=== PATIENT | male | born 1950 | race Caucasian/White ===

== ENCOUNTER 2020-08-03 11:34 | Outpatient (REF) | payer MEDICARE, SELFPAY ==
[2020-08-03 13:40] LABS: Cholesterol 157 mg/dL; HDL Cholesterol 45 mg/dL; LDL Cholesterol Calculated 94 mg/dl; Triglycerides 93 mg/dL
[2020-08-03 15:13] LABS: Estimated Average Glucose 169 mg/dL; Hemoglobin A1c % 7.5 %
[2020-08-04 04:56] LABS: SARS COV2 IgG Negative (Negative)
== END 2020-08-03 11:35 | disposition home or self-care (01) ==
LOC: HO.MANLR 11:34
PROVIDERS: PCP Internal Medicine; Visit Provider Internal Medicine
DX: E11.9 Type 2 diabetes mellitus without complications (principal); E78.00 Pure hypercholesterolemia, unspecified; B34.9 Viral infection, unspecified; Z20.828 Contact with and (suspected) exposure to other viral communicable diseases
CPT/HCPCS: 36415; 80061; 83036; 86769

== ENCOUNTER 2021-01-15 11:22 | Outpatient (REF) | payer MEDICARE, SELFPAY ==
[2021-01-15 13:33] LABS: Estimated Average Glucose 183 mg/dL
[2021-01-15 13:35] LABS: Alanine Aminotransferase 18 U/L (0-40); Alkaline Phosphatase 67 U/L (39-117); Anion Gap 13 (12-20); Aspartate Amino Transferase 16 U/L (5-37); Bilirubin Total 0.4 mg/dL (0.0-1.0); Blood Urea Nitrogen 21 mg/dL (9-16); Calcium 8.5 mg/dL (8.4-10.2); Carbon Dioxide 24 mmol/L (22-29); Chloride 106 mmol/L (96-108); Cholesterol 130 mg/dL; Estimated Glomerular Filt Rate > 60; Glucose Fasting 185 mg/dL (60-99); HDL Cholesterol 45 mg/dL; LDL Cholesterol Calculated 71 mg/dl; Potassium 4.5 mmol/L (3.3-5.1); Sodium 138 mmol/L (135-145); Total Protein 6.1 g/dL (6.5-8.0); Triglycerides 73 mg/dL
== END 2021-01-15 11:23 | disposition home or self-care (01) ==
LOC: HO.MANLR 11:22
PROVIDERS: PCP Internal Medicine; Visit Provider Internal Medicine
DX: E11.9 Type 2 diabetes mellitus without complications (principal)
CPT/HCPCS: 36415; 80053; 80061; 83036

== ENCOUNTER 2021-04-20 11:14 | Outpatient (REF) | payer MEDICARE, SELFPAY ==
[2021-04-20 13:35] LABS: Estimated Average Glucose 160 mg/dL; Hemoglobin A1c % 7.2 %
== END 2021-04-20 11:15 | disposition home or self-care (01) ==
LOC: HO.MANLDS 11:14
PROVIDERS: PCP Internal Medicine; Visit Provider Internal Medicine
DX: E11.9 Type 2 diabetes mellitus without complications (principal)
CPT/HCPCS: 36415; 83036

== ENCOUNTER 2021-08-18 11:53 | Outpatient (REF) | payer MEDICARE, SELFPAY ==
[2021-08-18 13:18] LABS: Estimated Average Glucose 194 mg/dL; Hemoglobin A1c % 8.4 %
== END 2021-08-18 11:54 | disposition home or self-care (01) ==
LOC: HO.MANLDS 11:53
PROVIDERS: PCP Internal Medicine; Visit Provider Internal Medicine
DX: E11.9 Type 2 diabetes mellitus without complications (principal)
CPT/HCPCS: 36415; 83036

== ENCOUNTER 2022-01-18 10:21 | Outpatient (REF) | payer MEDICARE, SELFPAY ==
[2022-01-18 13:48] LABS: Alanine Aminotransferase 20 U/L (0-40); Albumin Level 4.3 g/dL (3.5-5.0); Alkaline Phosphatase 70 U/L (39-117); Anion Gap 14 (12-20); Aspartate Amino Transferase 13 U/L (5-37); Bilirubin Total 0.6 mg/dL (0.0-1.0); Blood Urea Nitrogen 25 mg/dL (9-16); Calcium 9.5 mg/dL (8.4-10.2); Carbon Dioxide 24 mmol/L (22-29); Chloride 105 mmol/L (96-108); Cholesterol 147 mg/dL; Estimated Glomerular Filt Rate 57; Glucose Fasting 195 mg/dL (60-99); HDL Cholesterol 41 mg/dL; LDL Cholesterol Calculated 86 mg/dl; Sodium 138 mmol/L (135-145); Total Protein 6.6 g/dL (6.5-8.0); Triglycerides 102 mg/dL
[2022-01-18 13:56] LABS: Estimated Average Glucose 194 mg/dL; Hemoglobin A1c % 8.4 %
[2022-01-18 14:27] LABS: Creatinine Urine 97.21 mg/dL
== END 2022-01-18 10:22 | disposition home or self-care (01) ==
LOC: HO.MANLDS 10:21
PROVIDERS: PCP Internal Medicine; Visit Provider Internal Medicine
DX: E11.9 Type 2 diabetes mellitus without complications (principal)
CPT/HCPCS: 36415; 80053; 80061; 82043; 83036

== ENCOUNTER 2022-04-25 15:24 | Outpatient (REF) | payer MEDICARE, SELFPAY ==
[2022-04-25 19:24] LABS: Creatinine Urine 213.14 mg/dL; Microalbum/Creatinine Ratio Ur 14.5 ug/mg cr
[2022-04-25 19:26] LABS: Alanine Aminotransferase 19 U/L (0-40); Albumin Level 4.5 g/dL (3.5-5.0); Alkaline Phosphatase 89 U/L (39-117); Anion Gap 16 (12-20); Aspartate Amino Transferase 14 U/L (5-37); Bilirubin Total 0.6 mg/dL (0.0-1.0); Blood Urea Nitrogen 21 mg/dL (9-16); Calcium 9.5 mg/dL (8.4-10.2); Carbon Dioxide 22 mmol/L (22-29); Chloride 105 mmol/L (96-108); Cholesterol 121 mg/dL; Estimated Glomerular Filt Rate 51; Glucose Random 144 mg/dL (60-115); HDL Cholesterol 38 mg/dL; LDL Cholesterol Calculated 63 mg/dl; Potassium 4.8 mmol/L (3.3-5.1); Sodium 138 mmol/L (135-145); Total Protein 6.9 g/dL (6.5-8.0); Triglycerides 101 mg/dL
[2022-04-25 20:17] LABS: Estimated Average Glucose 169 mg/dL; Hemoglobin A1c % 7.5 %
== END 2022-04-25 15:25 | disposition home or self-care (01) ==
LOC: HO.MANLDS 15:24
PROVIDERS: Visit Provider Internal Medicine
DX: E11.9 Type 2 diabetes mellitus without complications (principal)
CPT/HCPCS: 36415; 80053; 80061; 82043; 83036

== ENCOUNTER 2022-11-07 09:02 | Outpatient (REF) | payer MEDICARE, SELFPAY ==
[2022-11-07 11:31] LABS: Alanine Aminotransferase 16 U/L (0-40); Albumin Level 4.3 g/dL (3.5-5.0); Alkaline Phosphatase 83 U/L (39-117); Anion Gap 12 (12-20); Aspartate Amino Transferase 13 U/L (5-37); Bilirubin Total 0.4 mg/dL (0.0-1.0); Blood Urea Nitrogen 21 mg/dL (9-16); Carbon Dioxide 24 mmol/L (22-29); Chloride 105 mmol/L (96-108); Cholesterol 130 mg/dL; Estimated Average Glucose 197 mg/dL; Estimated Glomerular Filt Rate 56; Glucose Random 222 mg/dL (60-115); HDL Cholesterol 35 mg/dL; Hemoglobin A1c % 8.5 %; LDL Cholesterol Calculated 68 mg/dl; Potassium 5.3 mmol/L (3.3-5.1); Sodium 136 mmol/L (135-145); Total Protein 6.5 g/dL (6.5-8.0); Triglycerides 137 mg/dL
[2022-11-07 11:52] LABS: Creatinine Urine 130.34 mg/dL
== END 2022-11-07 09:03 | disposition home or self-care (01) ==
LOC: HO.MANLDS 09:02
PROVIDERS: Visit Provider Internal Medicine
DX: E11.9 Type 2 diabetes mellitus without complications (principal)
CPT/HCPCS: 36415; 80053; 80061; 82043; 83036

== ENCOUNTER 2023-01-31 10:00 | Outpatient (REF) | payer MEDICARE, SELFPAY ==
[2023-01-31 12:15] LABS: Estimated Average Glucose 194 mg/dL; Hemoglobin A1c % 8.4 %
== END 2023-01-31 10:01 | disposition home or self-care (01) ==
LOC: HO.MANLDS 10:00
PROVIDERS: Visit Provider Internal Medicine
DX: E11.9 Type 2 diabetes mellitus without complications (principal)
CPT/HCPCS: 36415; 83036

== ENCOUNTER 2023-05-23 09:05 | Outpatient (REF) | payer MEDICARE, SELFPAY ==
[2023-05-23 12:52] LABS: MANUAL DIFF FLAG NO
[2023-05-23 13:34] LABS: Basophils Absolute Auto 0.1 X10*3/uL (0.0-0.2); Basophils Percent Auto 0.7 % (0-2); Eosinophils Absolute Auto 0.2 X10*3/uL (0.0-0.4); Hematocrit 33.6 % (42.0-52.0); Hemoglobin 10.6 g/dl (14.0-18.0); Imm Gran Abs Auto 0.02 X10*3/uL (0.00-0.03); Imm Gran Pct Auto 0.3 % (0.0-0.4); Lymphocytes Absolute Auto 1.6 X10*3/uL (1.2-4.9); Lymphocytes Percent Auto 23.7 % (20-40); Mean Corpuscular HGB Conc 31.5 g/dl (31.0-36.0); Mean Corpuscular Hemoglobin 28.9 pg (27.0-33.0); Mean Corpuscular Volume 91.6 fL (80.0-98.0); Mean Platelet Volume 10.8 fL (9.4-12.4); Monocytes Absolute Auto 0.6 X10*3/uL (0.1-1.2); Monocytes Percent Auto 8.2 % (2-11); Neutrophils Absolute Auto 4.3 x10*3/uL (2.0-8.3); Neutrophils Percent Auto 64.1 % (45-73); Platelet Count 246 X10*3/uL (160-400); Red Blood Count 3.67 X10*6/uL (4.60-5.80); Red Cell Distribution Width 13.2 % (11.0-16.0); White Blood Count 6.7 X10*3/uL (4.8-10.8)
[2023-05-23 13:42] LABS: Estimated Average Glucose 186 mg/dL; Hemoglobin A1c % 8.1 %
[2023-05-23 14:21] LABS: Alanine Aminotransferase 19 U/L (0-40); Albumin Level 4.1 g/dL (3.5-5.0); Alkaline Phosphatase 86 U/L (39-117); Anion Gap 7 (12-20); Aspartate Amino Transferase 13 U/L (5-37); Bilirubin Total 0.3 mg/dL (0.0-1.0); Blood Urea Nitrogen 22 mg/dL (9-16); Calcium 9.1 mg/dL (8.4-10.2); Carbon Dioxide 28 mmol/L (22-29); Chloride 110 mmol/L (96-108); Cholesterol 157 mg/dL; Estimated Glomerular Filt Rate 57; Glucose Random 190 mg/dL (60-115); HDL Cholesterol 47 mg/dL; LDL Cholesterol Calculated 76 mg/dl; Potassium 5.1 mmol/L (3.3-5.1); Sodium 140 mmol/L (135-145); Total Protein 6.6 g/dL (6.5-8.0); Triglycerides 171 mg/dL
== END 2023-05-23 09:06 | disposition home or self-care (01) ==
LOC: HO.MANLDS 09:05
PROVIDERS: Visit Provider Physician Assistant
DX: E78.01 Familial hypercholesterolemia (principal); E11.9 Type 2 diabetes mellitus without complications
CPT/HCPCS: 36415; 80053; 80061; 83036; 85025

== ENCOUNTER 2023-08-29 09:54 | Outpatient (REF) | payer MEDICARE, SELFPAY ==
[2023-08-29 13:55] LABS: Estimated Average Glucose 183 mg/dL
[2023-08-29 15:14] LABS: Alanine Aminotransferase 17 U/L (0-40); Albumin Level 4.1 g/dL (3.5-5.0); Alkaline Phosphatase 78 U/L (39-117); Anion Gap 15 (12-20); Aspartate Amino Transferase 13 U/L (5-37); Bilirubin Total 0.4 mg/dL (0.0-1.0); Blood Urea Nitrogen 27 mg/dL (9-16); Calcium 9.4 mg/dL (8.4-10.2); Carbon Dioxide 23 mmol/L (22-29); Chloride 107 mmol/L (96-108); Cholesterol 153 mg/dL (<200); Estimated Glomerular Filt Rate 52; Glucose Random 83 mg/dL (60-115); HDL Cholesterol 42 mg/dL (>40); LDL Cholesterol Calculated 90 mg/dL (<100); Potassium 4.7 mmol/L (3.3-5.1); Sodium 140 mmol/L (135-145); Total Protein 6.9 g/dL (6.5-8.0); Triglycerides 109 mg/dL (<150)
== END 2023-08-29 09:55 | disposition home or self-care (01) ==
LOC: HO.MANLDS 09:54
PROVIDERS: Visit Provider Internal Medicine
DX: E11.9 Type 2 diabetes mellitus without complications (principal)
CPT/HCPCS: 36415; 80053; 80061; 83036

== ENCOUNTER 2024-01-01 09:34 | Outpatient (REF) | payer MEDICARE, SELFPAY ==
[2024-01-01 14:05] LABS: Estimated Average Glucose 180 mg/dL; Hemoglobin A1c % 7.9 % (<6.0)
[2024-01-01 14:19] LABS: Alanine Aminotransferase 17 U/L (0-40); Albumin Level 4.1 g/dL (3.5-5.0); Alkaline Phosphatase 80 U/L (39-117); Anion Gap 12 (12-20); Aspartate Amino Transferase 12 U/L (5-37); Bilirubin Total 0.4 mg/dL (0.0-1.0); Blood Urea Nitrogen 23 mg/dL (9-16); Calcium 9.3 mg/dL (8.4-10.2); Carbon Dioxide 26 mmol/L (22-29); Chloride 107 mmol/L (96-108); Cholesterol 140 mg/dL (<200); Estimated Glomerular Filt Rate 56; Glucose Random 203 mg/dL (60-115); HDL Cholesterol 45 mg/dL (>40); LDL Cholesterol Calculated 71 mg/dL (<100); Potassium 5.5 mmol/L (3.3-5.1); Sodium 139 mmol/L (135-145); Total Protein 6.6 g/dL (6.5-8.0); Triglycerides 122 mg/dL (<150)
== END 2024-01-01 09:35 | disposition home or self-care (01) ==
LOC: HO.MANLDS 09:34
PROVIDERS: Visit Provider Internal Medicine
DX: E11.9 Type 2 diabetes mellitus without complications (principal)
CPT/HCPCS: 36415; 80053; 80061; 83036

== ENCOUNTER 2024-05-14 08:40 | Outpatient (REF) | payer MEDICARE, SELFPAY ==
[2024-05-14 13:32] LABS: Estimated Average Glucose 209 mg/dL; Hemoglobin A1c % 8.9 % (<6.0)
== END 2024-05-14 08:41 | disposition home or self-care (01) ==
LOC: HO.MANLDS 08:40
PROVIDERS: Visit Provider Internal Medicine
DX: E11.9 Type 2 diabetes mellitus without complications (principal)
CPT/HCPCS: 36415; 83036

== ENCOUNTER 2024-12-31 15:13 | Outpatient (REF) | payer MEDICARE, OTHER, SELFPAY ==
--- OUTSIDE RECORDS SUMMARY | 2024-12-31 19:15 | XMS_ITS | Continuity of Care Document ---
Author Organization [facility], [facility] Address [address] [facility] [facility] [place] [address] [place] [address] Assessment No assessment recorded. Plan of Treatment Reminders Order Date Submit Date Provider Last Modified By Organization Details Last Modified Time Details Appointments NEW PROBLEM 15 2024 02:30P M CAROLE ARREGUIN Not available Not available Not available FOLLOW UP 15 2024 10:30A M DR CHAVEZ Not available Not available Not available Lab CMP, serum or plasma 2024 [facility], [address] [place] [address], [place], [address], 12/31/2024 15:08:27 pro BNP (pro B-type natriur etic peptide ), serum or plasma 2024 025 [facility], [address] [place] [address], [address], 12/31/2024 15:08:27 CBC w/ auto diff 2024 025 [facility], [address] [place] [address], [address], 12/31/2024 15:08:27 Referral cardiol ogist referra l 2024 025 [facility], [address], [place], [address], 12/31/2024 16:46:35 Procedures None recorde d. Surgeries None recorde d. Imaging US, echocar diogram [email or web address] [place] [address] Outpatient Imaging Central Scheduling (Not Breast), [address] [place], [address], 12/31/2024 16:17:48 exercis e stress test [address] Outpatient Imaging Central Scheduling (Not Breast), [address] [place], [address], 12/31/2024 16:17:48 electro cardiog seema, routine ECG, 12 leads min [address] Imaging Central Scheduling (Not Breast), [address] [place], [address], 12/31/2024 16:17:48 Medication Orders clindam ycin HCl 300 mg capsule 2024 [id number] [address] [place] [address], [address], 12/31/2024 15:00:31 nitrogl ycerin 0.4 mg subling ual tablet 2024 025 [facility][id number], [address] [place] [address], [address], 12/31/2024 15:02:23 hydroch lorothi azide 12.5 mg capsule 2024 025 [id number], [address] [place] [address], [address], 12/31/2024 15:03:19 Patient TargetsNo targets recorded. Patient InstructionsNo instructions recorded. 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 [employer] Referral for At ypical chest pain hx of NSTEMI, needs new cardiology Referring Physician: Charis Bhakta, Internal Medicine, Encounter Date: 12/31/2024 Problems Name Problem SNOMED Code Status Onset Date Resolution Date Notes Provider Name and Address Organization Details Recorded Time Type 2 diabetes mellitus 68163605 Active 2017 Anabella cano [facility] 4 10:31:03 Essential hypertens ion 43034011 Active 2017 Anabella cano [facility] 4 10:31:03 Hyperchol esterolem ia 26968141 Active 2017 Anabellapasha cano [facility] 4 10:31:03 Closed fracture of right wrist 357945467988 15340 Active 2017 Anabella cano [facility] 4 10:31:24 Congenita l inguinal hernia 533643677 [facility] 10:[facility] History of appendect maria luz 737617656 Active 2017 Anabella cano [facility] 4 10:31:03 Paroxysma l supravent ricular tachycard ia 84089447 Active 2017 Anabella cano [facility] 4 10:31:03 Acute non-ST segment elevation myocardia l infarctio n 059009170 Active 02/2017 Anabella cano [facility] 4 10:31:03 Family history of stroke 983545939 [facility] 2017 [facility] 4 10:31:03 Coronary atheroscl erosis 347580747 Active 2017 Not Available [facility] 4 09:43:34 Insomnia 914618345 Active 2021 Anabella cano [facility] 4 10:31:03 Pain in left lower limb 114939693 Active 2021 Anabella cano [facility] 4 10:31:23 Cough 33357855 Active 2021 Anabellapasha cano [facility] 4 10:31:24 Impacted cerumen 27083565 Active 2021 Anabella cano [facility] 4 10:31:23 Impacted cerumen of bilateral ears 602236006068 9108 Active 2021 Anabellapasha Colmenares null, [facility] 4 10:31:23 Impacted cerumen 79003543 Active 2021 Anabellapasha Colmenares null, [facility] 4 10:31:23 Hyperkale jena 09894129 Active 2022 Anabellapasha Colmenares null, [facility] 4 10:31:03 Strain of hamstring tendon 315127684 Active 2022 Anabellapasha Colmenares null, [facility] 4 10:31:23 Pain of right knee joint 429076559270 100 Active 2022 Anabellapasha Colmenares null, [facility] 4 10:31:24 Chronic insomnia 505572211 Active 2022 Anabella Colmenares null, [facility] 4 10:31:03 Derangeme nt of right knee 628526905072 28153 Active 2022 Anabella Colmenares null, [facility] 4 10:31:03 Diverticu litis of sigmoid colon 133762139 Active 2022 Anabella Colmenares null, [facility] 4 10:31:03 Tear of meniscus of knee 379908173 Active 2022 Anabella Colmenares null, [facility] 4 10:31:23 Pain in right hip joint 259321965043 102 Active 2022 Anabella Colmenares null, [facility] 4 10:31:23 Pain in right lower limb 419095246 Active 2022 Anabellapasha Colmenares null, [facility] 4 10:31:23 Gastroeso phageal reflux disease 868380684 Active 2023 Hugh Chavez, DO [address] [place] [address], [place], [address], [facility] 4 15:40:00 Infection of tooth 483796375 Active 2024 CAROLE ARREGUIN [address] [place] [address], [phone], [facility] 5 14:49:11 Atypical chest pain 089893224 Active 2024 CAROLE ARREGUIN [address] [place] [address], [phone], [facility] 5 14:52:12 Notes:Some problems listed i n Documents: #[id number], #[id number], #[id number] could not be added to this patient's chart. Please review these documents and add these problems to the patient's chart manually as needed. Problem Notes None recorded. Procedures Surgical History Date Name Laterality Status Provider Name and Address Organization Details Recorded Time 023 Corticosteroid Injection completed Hugh Chavez DO [address] [place] [address], [phone], [facility] 09/12/2023 13:43:12 023 Corticosteroid Injection completed Hugh Chavez DO [address] [place] [address], [phone], [facility] 07/11/2023 15:46:05 023 Cerumen Removal completed CAROLE ARREGUIN [address] [place] [address], [phone], [facility] 01/31/2023 09:53:04 022 Cerumen Removal completed CAROLE ARREGUIN [address] [place] [address], [phone], [facility] 08/02/2022 10:58:32 022 Cerumen Removal completed CAROLE ARREGUIN [address] [place] [address], [address], [facility] 07/19/2022 10:37:40 022 Cerumen Removal completed CAROLE ARREGUIN [address] [place] [address], [phone], [facility] 07/11/2022 11:30:14 Imaging Results None recorded. Procedure Notes None recorded. Medical Equipment None Reported. Allergies Allergen ID Allergen Name Allergen Category Reaction Reaction Severity Criticality Documentation Date Start Date Code Code System Note Provider Name and Address Organization Details Recorded Time 241 penicilli n V Not available Not available Not available Not available 01/01/2018 7984 RxNorm Bettina Arnie [facility] 8 11:30:51 Medications Name Sig Start Date Stop Date Status Note LastModified by Organization Details LastModified Time pioglitazon e 15 mg tablet 08/03 completed Not Available Not Available Not Available metformin 500 mg tablet TAKE 1 TABLET BY MOUTH TWICE A DAY FOR 2 WEEKS THEN 2 TABLETS IN THE MORNING AND 1 TABLET IN EVENING FOR 2 WEEKS THEN 2 TABLETS TWICE A DAY 02/24 completed Not Available Not Available Not Available atorvastati n 80 mg tablet TAKE 1 TABLET BY MOUTH EVERY DAY 2023 active Not Available Not Available Not Avai lable prednisone 10 mg tablet Take 1 tablet every day by oral route for 10 days. 12/31 completed Not Available Not Available Not Available clindamycin HCl 300 mg capsule Take 1 capsule every 6 hours by oral route for 10 days. 2024 active Not Available Not Available Not Avai lable trazodone 50 mg tablet Take 1 tablet every day by oral route in the evening for 30 days. active Not Available Not Available No t Available azithromyci n 250 mg tablet TAKE 2 TABLETS (500 MG) BY ORAL ROUTE ONCE DAILY FOR 1 DAY THEN 1 TABLET (250 MG) BY ORAL ROUTE ONCE DAILY FOR 4 DAYS 07/11 completed Not Available Not Available Not Available tizanidine 4 mg tablet TAKE 1 TABLET BY MOUTH THREE TIMES A DAY NEEDED FOR 10 DAYS 09/02 completed Not Available Not Available Not Available metoprolol succinate ER 50 mg tablet,exte nded release 24 hr TAKE 1 TABLET BY MOUTH ONCE DAILY 06/23 completed Not Available Not Available Not Available meloxicam 15 mg tablet TAKE 1 TABLET BY MOUTH ONCE DAILY active Not Available Not Available No t Available lisinopril 20 mg tablet TAKE 1 TABLET BY MOUTH ONCE DAILY FOR 90 DAYS 06/23 completed Not Available Not Available Not Available metoprolol succinate ER 100 mg tablet,exte nded release 24 hr TAKE 2 TABLETS BY MOUTH EVERY DAY 2024 active Not Available Not Available Not Avai lable metronidazo le 250 mg tablet Take 1 tablet 3 times a day by oral route with meals for 7 days. 06/23 completed Not Available Not Available Not Available pioglitazon e 45 mg tablet Take 1 tablet by mouth once daily 05/30 completed Not Available Not Available Not Available acetaminoph en 300 mg-codeine 30 mg tablet TAKE 1 TABLET BY MOUTH EVERY 6 HOURS FOR 7 DAYS 09/02 completed Not Available Not Available Not Available ciprofloxac in 500 mg tablet TAKE 1 TABLET BY MOUTH EVERY 12 HOURS FOR 10 DAYS 01/01 completed Not Available Not Available Not Available tramadol 50 mg tablet TAKE 1 TABLET BY MOUTH EVERY 6 HOURS NEEDED FOR 30 DAYS active Not Available Not Available No t Available methocarbam ol 750 mg tablet Take 1 tablet 3 times a day by oral route for 15 days. 09/14 completed Not Available Not Available Not Available erythromyci n 5 mg/gram (0.5 %) eye ointment APPLY TO LOWER RIGHT EYELID TWICE DAILY FOR 4 DAYS 08/24 completed Not Available Not Available Not Available oseltamivir 75 mg capsule 02/24 completed Not Available Not Available Not Available hydrochloro thiazide 12.5 mg capsule Take 1 capsule every day by oral route for 30 days. 2024 active Not Available Not Available Not Avai lable nitroglycer in 0.4 mg sublingual tablet 0.3-0.6 mg SL q5min; Max: 3 doses w/in 15min 2024 active Not Available Not Available Not Avai lable lisinopril 30 mg tablet TAKE 1 TABLET BY MOUTH ONCE DAILY 09/20 completed Not Available Not Available Not Available omeprazole 20 mg capsule,del ayed release TAKE 1 CAPSULE BY MOUTH EVERY DAY active Not Available Not Available No t Available diclofenac sodium 75 mg tablet,cody yed release TAKE 1 TABLET BY MOUTH TWICE DAILY WITH MEALS FOR 10 DAYS 09/02 completed Not Available Not Available Not Available codeine 10 mg-guaifene sin 100 mg/5 mL oral liquid TAKE 10 ML BY MOUTH EVERY 4 HOURS FOR 7 DAYS 12/31 completed Not Available Not Available Not Available zolpidem 5 mg tablet TAKE 1 TABLET BY MOUTH EVERY DAY AT BEDTIME NEEDED active Not Available Not Available No t Available metoprolol succinate ER 25 mg tablet,exte nded release 24 hr 03/12 completed Not Available Not Available Not Available pioglitazon e 30 mg tablet Take 1 tablet every day by oral route for 30 days. 01/18 completed Not Available Not Available Not Available lisinopril 40 mg tablet TAKE 1 TABLET BY MOUTH EVERY DAY 2024 active Not Available Not Available Not Avai lable metformin ER 500 mg tablet,exte nded release 24 hr TAKE 2 TABLETS BY MOUTH TWICE A DAY WITH MEALS 2023 active Not Available Not Available Not Avai lable BD Ultra-Fine Mini Pen Needle 31 gauge x 3/16 USE FOUR TIMES PER DAY FOR INSULIN INJECTION S active Not Available Not Available No t Available Aspir-81 active Not Available Not Avai lable Not Available FreeStyle Lite Meter kit USE DIRECTED TO CHECK GLUCOSE DAILY 2022 active Not Available Not Available Not Avai lable FreeStyle Lite Strips USE 1 STRIP TO CHECK GLUCOSE THREE TIMES DAILY BEFORE MEAL(S) E11.65 active Not Available Not Available No t Available Lantus Solostar U-100 Insulin 100 unit/mL (3 mL) subcutaneou s pen INJECT 50 UNITS SUBCUTANE OUSLY AT BEDTIME active Not Available Not Available No t Available Humalog KwikPen (U-100) Insulin 100 unit/mL subcutaneou s INJECT 30 UNITS SUBCUTANE OUSLY DAILY EVERY 6 HOURS IF NEEDED 2023 active Not Available Not Available Not Avai lable Trulicity 1.5 mg/0.5 mL subcutaneou s pen injector INJECT 1 PEN SUBCUTANE OUSLY ONCE A WEEK 05/24 completed Not Available Not Available Not Available Fluad 2016- 65yr up(PF)45 mcg(15 mcgx3)/0.5 mL intramuscul ar syringe 09/14 completed Not Available Not Available Not Available Shingrix (PF) 50 mcg/0.5 mL intramuscul ar suspension, kit 01/29 completed Not Available Not Available Not Available Fluzone High-Dose (PF) 180 mcg/0.5 mL intramuscul ar syringe 09/14 completed Not Available Not Available Not Available BD Marianne 2nd Gen Pen Needle 32 gauge x USE 1 PEN NEEDLE TO INJECT INSULIN UP TO 4 TIMES DAILY DIRECTED active Not Available Not Available No t Available Fluad 2018- 65yr up(PF)45 mcg(15 mcgx3)/0.5 mL intramuscul ar syringe 09/20 completed Not Available Not Available Not Available Semglee (insulin glargine-yf gn) Pen 100 unit/mL (3 mL) subcutaneou s INJECT 50 UNITS SUBCUTANE OUSLY AT BEDTIME 01/01 completed Not Available Not Available Not Available Vitals Date Recorded Body height Body mass index (BMI) Body weight Heart rate Oxygen saturation Oxygen saturation in Arterial blood by Pulse oximetry Systolic blood pressure Diastolic blood pressure Provider Name and Address Organization Details Last Updated DateTime 5 170.18 cm 31 kg/m2 27168.2 9 g 69 /min 96 % 96 % 150 mm[Hg] 78 mm[Hg] Miles Estes [facility] 5 14:42:52 Social History Question Answer Notes LastModified by Organizat ion Details LastModified Time Tobacco Smoking Status Never Smoker Karlene cano [facility] 03/12/2018 17:04:43 What Was The Date Of Your Most Recent Tobacco Screening? 12/31/2024 [email or web address] Information not available 12/31/2024 Do You Or Have You Ever Used Any Other Forms Of Tobacco Or Nicotine? No [email or web address] Information not available 05/24/2023 Sex: Unknown Functional Status None recorded. Mental Status None recorded. Family History Nothing Reported. Medical History No medical history recorded. Immunizations Vaccine Type Date Status Note Provider Nam e and Address Organization Details Recorded Time pneumococcal polysaccharide PPV23 6 completed Not Available [facility] 11/16/2023 09:43:34 Influenza, split virus, quadrivalent, preservative 8 completed Not Available [facility] 11/16/2023 09:43:34 Influenza, split virus, quadrivalent, preservative 1 completed Not Available [facility] 11/16/2023 09:43:34 COVID-19, mRNA, LNP-S, PF, 30 mcg/0.3 mL dose 1 completed Not Available [facility] 11/16/2023 09:43:34 COVID-19, mRNA, LNP-S, PF, 30 mcg/0.3 mL dose 2 completed Not Available [facility] 11/16/2023 09:43:34 influenza, unspecified formulation 2 completed Not Available [facility] 11/16/2023 09:43:34 zoster live 8 completed Not Available [facility] 11/16/2023 09:43:34 zoster live 8 completed Not Available [facility] 11/16/2023 09:43:34 Influenza, split virus, quadrivalent, preservative 9 completed Not Available [facility] 11/16/2023 09:43:34 COVID-19, mRNA, LNP-S, PF, 30 mcg/0.3 mL dose 1 completed Not Available [facility] 11/16/2023 09:43:34 COVID-19, mRNA, LNP-S, PF, 30 mcg/0.3 mL dose 1 completed Not Available [facility] 11/16/2023 09:43:34 Influenza, split virus, quadrivalent, preservative 0 completed Not Available [facility] 11/16/2023 09:43:34 Past Encounters Encounter ID Performer Location Encounter Start Date Encounter Closed Date Diagnosis/Indication Diagnosis SNOMED-CT Code Diagnosis ICD10 Code Diagnosis Note [id number] CAROLE ARREGUIN [facility] [address] [facility] [address] 12/31/2024 14:02:27 12/31/2024 16:17:48 Infection of tooth 855455180 K04.7 Atypical chest pain 1025 11034 R07.89 will set up with US echo, exercise stress, EKG STAT increase the aspirin to 325 mg, add additional BP medcontinu e on metoprolol and lisinopril Health Concerns Section Related Observation LastModified by Organization Detai ls LastModified Time None Recorded Concern Status LastModified by Organization Details LastModified Time None Recorded Payers Encounter Date Sequence Insurance Name Policy Number Policy Goode Covered Member ID Goode Member ID Guarantor Name 12/31/2024 1 [place]IC[place]: [employer] Price Robertsoney [id number] Price Aly 12/31/2024 2 [employer] (MEDICARE SUPPLEMENT) Price Jermain [id number] Price Jermain Notes Date Note Type Note Provider Name a nd Address Organization Details Recorded Time 12/31/2024 text/html BP elevated patient has been having blurred visionthe patient reports headaches, blurred vision, nose bleeds intermittent L arm pain, chest pressure hx of NSTEMIneeds new cardio, STAT f/u with EKG and stress test due to concern for ACS pt knows go to ER if symptoms worsenneeds EKG STAT, if showing anything needs to go to ER 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
== END 2024-12-31 15:14 | disposition home or self-care (01) ==
LOC: HO.MANLDS 15:13
PROVIDERS: Visit Provider Physician Assistant
DX: Z13.89 Encounter for screening for other disorder (principal)

== ENCOUNTER 2025-01-06 14:02 | Outpatient (REF) | payer MEDICARE, OTHER, SELFPAY ==
--- OUTSIDE RECORDS SUMMARY | 2025-01-06 15:57 | XMS_ITS | Continuity of Care Document ---
Author Organization [facility], [facility] Address [address] [place] [address] Assessment No assessment recorded. Plan of Treatment Reminders Order Date Submit Date Provider Last Modified By Organization Details Last Modified Time Details Appointments FOLLOW UP 15 2024 10:30A M DR CHAVEZ Not available Not available Not available Lab CMP, serum or plasma 2024 025 [facility], [address] [place] [address], [id number], 12/31/2024 15:08:27 pro BNP (pro B-type natriur etic peptide ), serum or plasma 2024 025 [facility], [address] [place] [address], [place], [address], 12/31/2024 15:08:27 CBC w/ auto diff 2024 025 [facility], [address] [place] [address], [id number], 01/02/2025 13:12:56 Referral cardiol ogist referra l 2024 025 [facility], [address], [place], [address], 01/01/2025 08:21:06 Procedures None recorde d. Surgeries None recorde d. Imaging US, echocar diogram 2024 025 [facility] Central Scheduling (Not Breast), [address] [place], [address], 01/01/2025 08:09:05 exercis e stress test [address] [facility] Central Scheduling (Not Breast), [address] [place], [address], 12/31/2024 16:17:48 electro cardiog seema, routine ECG, 12 leads min [address] Outpatient [facility] Central Scheduling (Not Breast), [address] [place], [address], 12/31/2024 16:17:48 Medication Orders clindam ycin HCl 300 mg [id number] [address] [place], [address], 12/31/2024 15:00:31 nitrogl ycerin 0.4 mg subling ual tablet 2024 025 [id number], [address] [place], [address], 12/31/2024 15:02:23 hydroch lorothi azide 12.5 mg capsule 2024 025 [id number], [address] [place], [address], 12/31/2024 15:03:19 Patient TargetsNo targets recorded. Patient InstructionsNo instructions recorded. 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 for At ypical chest pain hx of NSTEMI, needs new cardiology Referring Physician: Charis Bhakta, Internal Medicine, Encounter Date: 12/31/2024 Problems Name Problem SNOMED Code Status Onset Date Resolution Date Notes Provider Name and Address Organization Details Recorded Time Type 2 diabetes mellitus 65358616 Active 2017 Anabella cano [place] [facility] 10:31:03 Essential hypertens ion 79037961 Active 2017 Anabella cano [facility] 4 10:31:03 Hyperchol esterolem ia 14547799 [facility] Closed fracture of right wrist 149204667085 92878 Active 2017 Anabellapasha cano [facility] 4 10:31:24 Congenita l inguinal hernia 567642183 [facility] 2017 [facility] 10:31:24 History of appendect maria luz 021984320 [facility] 10:31:03 Paroxysma l supravent ricular tachycard ia 87828888 [facility] 2017 [facility] 10:31:03 Acute non-ST segment elevation myocardia l infarctio n 252466993 Active 02/2017 Anabella cano [facility] 4 10:31:03 Family history of stroke 934046846 [facility] 2017 [facility] 10:31:03 Coronary atheroscl erosis 796699809 Active 2017 Not Available [facility] 4 09:43:34 Insomnia 164877708 Active 2021 Anabella caon [facility] 4 10:31:03 Pain in left lower limb 240809344 Active 2021 Anabella cano [facility] 4 10:31:23 Cough 30153607 Active 2021 Anabella cano [facility] 4 10:31:24 Impacted cerumen 84361532 Active 2021 Anabella cano [facility] 4 10:31:23 Impacted cerumen of bilateral ears 565472831949 9108 Active 2021 Anabella Colmenares null, [facility] 4 10:31:23 Impacted cerumen 43676148 Active 2021 Anabella Colmenares null, [facility] 4 10:31:23 Hyperkale jena 12964347 Active 2022 Anabellapasha Colmenares null, [facility] 4 10:31:03 Strain of hamstring tendon 725133738 Active 2022 Anabellapasha Colmenares null, [facility] 4 10:31:23 Pain of right knee joint 358462117542 100 Active 2022 Anabella Colmenares null, [facility] 4 10:31:24 Chronic insomnia 124606445 Active 2022 Anabellapasha Colmenares null, [facility] 4 10:31:03 Derangeme nt of right knee 193480068551 15768 Active 2022 Anabella Colmenares null, [facility] 4 10:31:03 Diverticu litis of sigmoid colon 186980012 Active 2022 Anabella Colmenares null, [facility] 4 10:31:03 Tear of meniscus of knee 122906193 Active 2022 [facility] 10:[facility]:23 Pain in right hip joint 469054944124 102 Active 2022 Anabella Colmenares null, [facility] 4 10:31:23 Pain in right lower limb 269398655 Active 2022 Anabellapasha Comlenares null, [facility] 4 10:31:23 Gastroeso phageal reflux disease 094266409 Active 2023 Hugh Chavez DO [address] [place] [address], [phone], [facility] 4 15:40:00 Infection of tooth 867147021 Active 2024 CAROLE ARREGUIN [address] [place], [address], [facility] 14:49:11 Atypical chest pain 189010150 Active 2024 CAROLE ARREGUIN [address] [place], [address], [facility] 14:52:12 Anemia 364233110 Active 2024 CAROLE ARREGUIN [address] [place] [address], [phone], [facility] 12:10:52 Notes:Some problems listed i n Documents: #[id number], #[id number], #[id number] could not be added to this patient's chart. Please review these documents and add these problems to the patient's chart manually as needed. Problem Notes None recorded. Procedures Surgical History Date Name Laterality Status Provider Name and Address Organization Details Recorded Time 023 Corticosteroid Injection completed Hugh Chavez DO [address] [place] [address], [phone], [facility] 09/12/2023 13:43:12 023 Corticosteroid Injection completed Hugh Chavez DO [address] [place] [address], [phone], [facility] 07/11/2023 15:46:05 023 Cerumen Removal completed CAROLE ARREGUIN [address] [place] [address], [address], [facility] 01/31/2023 09:53:04 022 Cerumen Removal completed CAROLE ARREGUIN [address] [place] [address], [address], [facility] 08/02/2022 10:58:32 022 Cerumen Removal completed CAROLE ARREGUIN [address] [place] [address], [address], [facility] 07/19/2022 10:37:40 022 Cerumen Removal completed CAROLE ARREGUIN [address] [place], [address], [facility] 07/11/2022 11:30:14 Imaging Results None recorded. Procedure Notes None recorded. Medical Equipment None Reported. Allergies Allergen ID Allergen Name Allergen Category Reaction Reaction Severity Criticality Documentation Date Start Date Code Code System Note Provider Name and Address Organization Details Recorded Time 241 penicilli n V Not available Not available Not available Not available 01/01/2018 7984 [facility] 8 11:30:51 Medications Name Sig [...] Not Available Not Available Not Available Fluad 65yr up(PF)45 mcg(15 mcgx3)/0.5 mL intramuscul ar syringe 09/14 completed Not Available Not Available Not Available Shingrix (PF) 50 mcg/0.5 mL intramuscul ar suspension, kit 01/29 completed Not Available Not Available Not Available Fluzone High-Dose 7363-4221 (PF) 180 mcg/0.5 mL intramuscul ar syringe [...] Updated DateTime 5 170.18 cm 31 kg/m2 84277.2 9 g 69 /min 96 % 96 % 150 mm[Hg] 78 mm[Hg] Miles Estes [facility] 14:42:52 Social History Question Answer Notes LastModified by Organizat ion Details LastModified Time Tobacco Smoking Status Never Smoker Karlene cano [facility] 03/12/2018 17:04:43 What Was The Date Of Your Most Recent Tobacco Screening? 12/31/2024 [email or web address] Information not available 12/31/2024 Do You Or Have You Ever Used Any Other Forms Of Tobacco Or Nicotine? No [email or web address] Information not available 05/24/2023 Sex: Unknown Functional Status None recorded. Mental Status None recorded. Family History Nothing Reported. Medical History No medical history recorded. Immunizations Vaccine Type Date Status Note Provider Nam e and Address Organization Details Recorded Time pneumococcal polysaccharide PPV23 6 completed Not Available [facility] 11/16/2023 09:43:34 Influenza, split virus, quadrivalent, preservative 8 completed Not Available [facility] 11/16/2023 09:43:34 Influenza, split virus, quadrivalent, preservative 1 completed Not Available [facility] 11/16/2023 09:43:34 COVID-19, mRNA, LNP-S, PF, 30 mcg/0.3 mL dose 1 completed [facility] Available [facility] 11/16/2023 09:43:34 COVID-19, mRNA, LNP-S, PF, 30 mcg/0.3 mL dose 2 completed Not Available [facility] 11/16/2023 09:43:34 influenza, unspecified formulation 2 completed [facility] Available [facility] 11/16/2023 09:43:34 zoster live 8 completed Not Available [facility] 11/16/2023 09:43:34 zoster live 8 completed Not Available [facility] 11/16/2023 09:43:34 Influenza, split virus, quadrivalent, preservative 9 completed Not Available [facility] 11/16/2023 09:43:34 COVID-19, mRNA, LNP-S, PF, 30 mcg/0.3 mL dose 1 completed Not Available [facility] 11/16/2023 09:43:34 COVID-19, mRNA, LNP-S, PF, 30 mcg/0.3 mL dose 1 completed Not Available [facility] 11/16/2023 09:43:34 Influenza, split virus, quadrivalent, preservative 0 completed Not Available [facility] 11/16/2023 09:43:34 Past Encounters Encounter ID Performer Location Encounter Start Date Encounter Closed Date Diagnosis/Indication Diagnosis SNOMED-CT Code Diagnosis ICD10 Code Diagnosis Note [id number] Lary Wang [facility] [address] [address] 12/31/2024 14:02:27 12/31/2024 16:17:48 Infection of tooth 676502157 K04.7 Atypical chest pain 1025 87167 R07.89 will set up with US echo, [...] ID Guarantor Name 12/31/2024 1 MEDICARE B-[place]: [employer] Price Robertsoney [id number] Price Aly 12/31/2024 2 [employer] (MEDICARE SUPPLEMENT) Price Jermain [id number] Price Aly Notes Date Note Type Note Provider Name [...] 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
--- OUTSIDE RECORDS SUMMARY | 2025-01-06 15:58 | XMS_ITS | Data Portability ---
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 MUST MEET 2 OUT OF 3 ELEMENTS: PROBLEMS, DATA OR RISK ELEMENT 1: PROBLEMS ADDRESSED 1 OR MORE CHRONIC ILLNESS WITH EXACERBATION OR 2 OR MORE STABLE CHRONIC ILLNESSES OR 1 UNDIAGNOSED NEW PROBLEM OR 1 ACUTE ILLNESS W/SYMPTOMS OR 1 ACUTE COMPLICATED INJURY ELEMENT 2: DATA MUST MEET 1 OF 3 CATEGORIES CATEGORY 1: REVIEW OF PRIOR EXTERNAL NOTES, REVIEW OF RESULTS, ORDERING OF EACH TEST, ASSESSMENT REQUIRING INDEPENDENT HISTORIAN OR CATEGORY 2: INDEPENDENT INTERPRETATION OF TESTS BY ANOTHER PHYSICIAN OR SPECIALIST OR CATEGORY 3: DISCUSSION OF MGT OR TEST INTERPRETATION W/EXTERNAL PHYSICIAN OR SPECIALIST ELEMENT 3: RISK RISK OF COMPLICATIONS AND/OR MORBIDITY OR MORTALITY OF PATIENT MANAGEMENT PROVIDER MUST THOROUGHLY DOCUMENT EACH ELEMENT THAT IS COVERED Not available 10/03/2023 14:39:26 01/02/2024 01/02/2024 [id number] [place] [id number]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) [facility] 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 MUST MEET 2 OUT OF 3 ELEMENTS: PROBLEMS, DATA OR RISK ELEMENT 1: PROBLEMS ADDRESSED 1 OR MORE CHRONIC ILLNESS WITH EXACERBATION OR 2 OR MORE STABLE CHRONIC ILLNESSES OR 1 UNDIAGNOSED NEW PROBLEM OR 1 ACUTE ILLNESS W/SYMPTOMS OR 1 ACUTE COMPLICATED INJURY ELEMENT 2: DATA MUST MEET 1 OF 3 CATEGORIES CATEGORY 1: REVIEW OF PRIOR EXTERNAL NOTES, REVIEW OF RESULTS, ORDERING OF EACH TEST, ASSESSMENT REQUIRING INDEPENDENT HISTORIAN OR CATEGORY 2: INDEPENDENT INTERPRETATION OF TESTS BY ANOTHER PHYSICIAN OR SPECIALIST OR CATEGORY 3: DISCUSSION OF MGT OR TEST INTERPRETATION W/EXTERNAL PHYSICIAN OR SPECIALIST ELEMENT 3: RISK RISK OF COMPLICATIONS AND/OR MORBIDITY OR MORTALITY OF PATIENT MANAGEMENT PROVIDER MUST THOROUGHLY DOCUMENT EACH ELEMENT THAT IS COVERED Not available 01/02/2024 14:15:19 05/15/2024 05/15/2024 Patient presente d to office today for their Medicare Annual Wellness Visit. Education was provided on healthy nutrition, including a diet rich in fruits and vegetables, minimizing simple carbohydrates, salt, and saturated fats. Encouraged regular cardiovascular exercise such as walking at least 30 minutes daily, 5 times per week. Emphasized preventive health measures and educated pt on fall prevention and community-based lifestyle interventions to help reduce health risks and promote healthy living. 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 MUST MEET 2 OUT OF 3 ELEMENTS: PROBLEMS, DATA OR RISK ELEMENT 1: PROBLEMS ADDRESSED 1 OR MORE CHRONIC ILLNESS WITH EXACERBATION OR 2 OR MORE STABLE CHRONIC ILLNESSES OR 1 UNDIAGNOSED NEW PROBLEM OR 1 ACUTE ILLNESS W/SYMPTOMS OR 1 ACUTE COMPLICATED INJURY ELEMENT 2: DATA MUST MEET 1 OF 3 CATEGORIES CATEGORY 1: REVIEW OF PRIOR EXTERNAL NOTES, REVIEW OF RESULTS, ORDERING OF EACH TEST, ASSESSMENT REQUIRING INDEPENDENT HISTORIAN OR CATEGORY 2: INDEPENDENT INTERPRETATION OF TESTS BY ANOTHER PHYSICIAN OR SPECIALIST OR CATEGORY 3: DISCUSSION OF MGT OR TEST INTERPRETATION W/EXTERNAL PHYSICIAN OR SPECIALIST ELEMENT 3: RISK RISK OF COMPLICATIONS AND/OR MORBIDITY OR MORTALITY OF PATIENT MANAGEMENT PROVIDER MUST THOROUGHLY DOCUMENT EACH ELEMENT THAT IS COVERED Not available 09/02/2024 11:55:29 Plan of Treatment Reminders Order Date Submit Date Provider Last Modified By Organization Details Last Modified Time Details Appointments FOLLOW UP 15 2024 10:30A M DR CHAVEZ Not available Not available Not available Lab CMP, serum or plasma 2024 025 [facility], [address] [place] [address], [place], [address], 12/31/2024 15:08:27 pro BNP (pro B-type natriur etic peptide ), serum or plasma 2024 025 [facility], [address] [place] [address], [place], [address], 12/31/2024 15:08:27 CBC w/ auto diff 2024 025 [facility], [address] [place] [address], [id number], 01/02/2025 13:12:56 HbA1c (hemogl obin A1c), blood 2023 024 [facility], [address] [place] [address], [address], 09/02/2024 12:02:58 HbA1c (hemogl obin A1c), blood 2023 024 [facility], [address] [place] [address], [address], 05/15/2024 15:35:13 microal bumin, urine 2023 024 [facility], [address] [place] [address], [address], 05/15/2024 15:40:58 lipid panel, blood 2023 024 [facility], [address] [place] [address], [address], 05/15/2024 15:35:12 CMP, serum or plasma 2023 024 [facility], [address] [place] [address], [address], 05/15/2024 15:35:12 CBC 2023 024 [facility], [address] [place] [address], [address], 05/15/2024 15:35:12 PSA, serum or plasma 2023 024 [facility], [address] [place] [address], [address], 05/15/2024 15:35:13 Referral cardiol ogist referra l 2024 025 [facility], [address], [place], [address], 01/01/2025 08:21:06 Procedures None recorde d. Surgeries None recorde d. Imaging US, echocar diogram 2024 [facility] Imaging Central Scheduling (Not Breast), [address] [place], [address], 01/01/2025 08:09:05 exercis e stress test [address] Imaging Central Scheduling (Not Breast), [address] [place], [address], 12/31/2024 16:17:48 electro cardiog seema, routine ECG, 12 leads min [address] Imaging Central Scheduling (Not Breast), [address] [place], [address], 12/31/2024 16:17:48 Medication Orders clindam ycin HCl 300 mg capsule [facility]24 [id number] [address] [place], [address], 12/31/2024 15:00:31 nitrogl ycerin 0.4 mg subling ual tablet 2024 025 [facility]acy #[id number], [address] [place], [address], 12/31/2024 15:02:23 hydroch lorothi azide 12.5 mg capsule 2024 025 [facility]armacy #[id number], [address] [place], [address], 12/31/2024 15:03:19 zolpide m 5 mg tablet 2023 024 [facility]acy #[id number], [address] [place], [address], 09/02/2024 11:56:38 Mounjar o 5 mg/0.5 mL subcuta neous pen injecto r 2023 024 [facility]armacy #[id number], [address] [place], [address], 09/02/2024 11:35:15 omepraz ole 20 mg capsule ,delaye d release 2023 024 [facility]acy #[id number], [address] [place], [address], 05/15/2024 15:40:32 metopro lol succina te ER 100 mg tablet, extende d release 24 hr 2022 023 [facility], [address] [place], [address], 10/03/2023 14:42:50 Patient TargetsNo targets recorded. Patient Instructions Encounter Date Encounter Id Patient Instructions Last Modified By Organization Details Last Modified Time 10/03/2023 [id number] learning about t ype 2 diabetes Not available 10/03/2023 14:42:44 type 2 diabetes: care instructions Not available 10/03/2023 14:42:44 high blood press ure: care instructions Not available 10/03/2023 14:42:44 learning about h igh blood pressure Not available 10/03/2023 14:42:43 05/15/2024 [id number] gastroesophageal reflux disease (GERD): care instructions Not available 05/15/2024 15:40:30 Discussed and explained advance directives such as standard forms to the {{patient caregiver patient and caregiver}}. Face to face discussion lasted for a duration of ___ minutes. Not available 04/17/2024 10:30:03 09/02/2024 [id number] learning about t ype 2 diabetes Not available 09/02/2024 11:56:36 type 2 diabetes: care instructions Not available 09/02/2024 11:56:36 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 [employer] Referral for At ypical chest pain hx of NSTEMI, needs new cardiology Referring Physician: Charis Bhakta, Internal Medicine, Encounter Date: 12/31/2024 Results Created Date Observation Date Name Description Value Unit Range Abnormal Flag Note LastModifiedBy Organization Detail LastModifiedTime 09/04/2009/01/2023 XR, hip, unila teral , 2 or 3 view No observ ation record ed. [address] [facility] [address] [place], [address], 09/04/2023 13:37:15 09/04/20 23 09/01/2023 XR, lumba r spine , 2 view No observ ation record ed. [address] [facility] [address] [place], [address], 09/04/2023 13:37:15 09/04/20 23 09/01/2023 XR, knee, 3 view No observ ation record ed. [address] [facility] [address] [place], [address], 09/04/2023 14:03:02 Result Notes None recorded. Problems Name Problem SNOMED Code Status Onset Date Resolution Date Notes Provider Name and Address Organization Details Recorded Time Type 2 diabetes mellitus 45827229 Active [address] [facility] 4 10:31:03 Essential hypertens ion 21335919 Active 2017 [facility] 10:31:03 Hyperchol esterolem ia 84142328 Active [address] [facility] 4 10:31:03 Closed fracture of right wrist 217921133868 84333 Active [address] [facility] 4 10:31:24 Congenita l inguinal hernia 403285009 Active 2017 [facility] 10:[facility]:24 History of appendect maria luz 485218886 [facility] 4 10:31:03 Paroxysma l supravent ricular tachycard ia 32285635 [facility] 4 10:31:03 Acute non-ST segment elevation myocardia l infarctio n 652448880 Active 02/[facility] 10:31:03 Family history of stroke 238519822 [facility] 4 10:31:03 Coronary atheroscl erosis 408630563 Active 2017 Not Available [facility] 4 09:43:34 Insomnia 048885507 Active [facility] 10:31:03 Pain in left lower limb 442183472 Active 2021 Anabella Colmenares [facility] 4 10:31:23 Cough 56354119 Active [facility] 4 10:31:24 Impacted cerumen 61344362 Active [facility] 4 10:31:23 Impacted cerumen of bilateral ears 877936886395 9108 Active 2021 [facility] 4 10:31:23 Impacted cerumen 41349771 Active [facility] 10:31:23 Hyperkale jena 30893875 [facility] 20[facility] 4 10:31:03 Strain of hamstring tendon 274347595 [facility] 4 10:31:23 Pain of right knee joint 838967243451 100 Active 2022 Anabella Colmenares null, [facility] 4 10:31:24 Chronic insomnia 269030077 Active 2022 Anabella Colmenares null, [facility] 4 10:31:03 Derangeme nt of right knee 762983439180 75423 Active 2022 Anabella Colmenares null, [facility] 4 10:31:03 Diverticu litis of sigmoid colon 944945844 Active 2022 Anabella cano, [facility] 4 10:31:03 Tear of meniscus of knee 069112862 Active 2022 Anabella cano, [facility] 4 10:31:23 Pain in right hip joint 518998637612 102 Active 2022 Anabella Colmenares null, [facility] 4 10:31:23 Pain in right lower limb 552579513 Active 2022 Anabellapasha cano, [facility] 4 10:31:23 Gastroeso phageal reflux disease 560719765 Active 2023 Hugh Chavez DO [address] [place] [address], [address], [facility] 4 15:40:00 Infection of tooth 746462388 Active 2024 CAROLE ARREGUIN [address] [place] [address], [address], [facility] 5 14:49:11 Atypical chest pain 201278358 Active 2024 CAROLE ARREGUIN [address] [place] [address], [address], [facility] 5 14:52:12 Anemia 911232190 Active 2024 CAROLE ARREGUIN [address] [place] [address], [address], [facility] 12:10:52 Notes:Some problems listed i n Documents: #[id number], #[id number], #[id number] could not be added to this patient's chart. Please review these documents and add these problems to the patient's chart manually as needed. Problem Notes None recorded. Procedures Surgical History Date Name Laterality Status Provider Name and Address Organization Details Recorded Time 023 Corticosteroid Injection completed Hugh Chavez DO [address] [place] [address], [address], [facility] 09/12/2023 13:43:12 023 Corticosteroid Injection completed Hugh Chavez DO [address] [place] [address], [address], [facility] 07/11/2023 15:46:05 023 Cerumen Removal completed CAROLE ARREGUIN [address] [place] [address], [address], [facility] 01/31/2023 09:53:04 022 Cerumen Removal completed CAROLE ARREGUIN [address] [place] [address], [address], [facility] 08/02/2022 10:58:32 022 Cerumen Removal completed CAROLE ARREGUIN [address] [place] [address], [address], [facility] 07/19/2022 10:37:40 022 Cerumen Removal completed CAROLE ARREGUIN [address] [place] [address], [address], [facility] 07/11/2022 11:30:14 Imaging Results Imaging Date Name Status LastModified by Organiz ation Details LastModified Time 09/01/2023 XR, hip, unilateral, 2 or 3 view completed [email or web address] [facility] [address] [place], [address], 09/04/2023 13:37:15 09/01/2023 XR, lumbar spine, 2 view [facility] [facility] [address] [place], [address], 09/04/2023 13:37:15 09/01/2023 XR, knee, 3 view [facility] [facility] [address] [place], [address], 09/04/2023 14:03:02 Procedure Notes None recorded. Medical Equipment None Reported. Allergies Allergen ID Allergen Name Allergen Category Reaction Reaction Severity Criticality Documentation Date Start Date Code Code System Note Provider Name and Address Organization Details Recorded Time 241 penicilli n V Not available Not available Not available Not available 01/01/2018 7984 RxNorm Bettina [facility]o [facility] 8 11:30:51 Medications Name Sig [...] 2nd Gen Pen Needle 32 gauge x /32 USE 1 PEN NEEDLE TO INJECT INSULIN UP TO 4 TIMES DAILY DIRECTED active Not Available Not Available No t Available Fluad 65yr up(PF)45 mcg(15 mcgx3)/0.5 mL [...] and Address Organization Details Last Updated DateTime 3 168.28 cm 30.8 kg/m2 19794.7 4 g 61 /min 98 % 98 % 160 mm[Hg] 80 mm[Hg] Jackie Jackson [facility] 3 14:15:04 Date Recorded Body height Body mass index (BMI) Body weight Heart rate Oxygen saturation Oxygen saturation in Arterial blood by Pulse oximetry Systolic blood pressure Diastolic blood pressure Provider Name and Address Organization Details Last Updated DateTime 4 168.28 cm 32 kg/m2 65170.7 6 g 64 /min 92 % 92 % 154 mm[Hg] 80 mm[Hg] Hugh Chavez, DO [address] [place], [address] [place] [address] [facility] 4 13:45:35 Date Recorded Body height Body mass index (BMI) Body weight Heart rate Oxygen saturation Oxygen saturation in Arterial blood by Pulse oximetry Systolic blood pressure Diastolic blood pressure Provider Name and Address Organization Details Last Updated DateTime 4 168.28 cm 31.7 kg/m2 71677.2 9 g 73 /min 95 % 95 % 128 mm[Hg] 68 mm[Hg] Jackie Jackson [facility] 4 15:11:51 Date Recorded Body height Body mass index (BMI) Body weight Heart rate Oxygen saturation Oxygen saturation in Arterial blood by Pulse oximetry Systolic blood pressure Diastolic blood pressure Provider Name and Address Organization Details Last Updated DateTime 4 168.28 cm 31.7 kg/m2 31892.2 9 g 58 /min 98 % 98 % 148 mm[Hg] 86 mm[Hg] Miles Estes [facility] 4 11:36:49 Date Recorded Body height Body mass index (BMI) Body weight Heart rate Oxygen saturation Oxygen saturation in Arterial blood by Pulse oximetry Systolic blood pressure Diastolic blood pressure Provider Name and Address Organization Details Last Updated DateTime 5 170.18 cm 31 kg/m2 52090.2 9 g 69 /min 96 % 96 % 150 mm[Hg] 78 mm[Hg] Miles Estes [facility] 5 14:42:52 Social History Question Answer Notes LastModified by Organizat ion Details LastModified Time Tobacco Smoking Status [facility] 03/12/2018 17:04:43 What Was The Date Of Your Most Recent Tobacco Screening? 12/31/2024 [email or web address] Information not available 12/31/2024 Do You Or Have You Ever Used Any Other Forms Of Tobacco Or Nicotine? No [email or web address] Information not available 05/24/2023 Sex: Unknown Functional Status None recorded. Mental Status None recorded. Family History Nothing Reported. Medical History No medical history recorded. Immunizations Vaccine Type Date Status Note Provider Nam e and Address Organization Details Recorded Time pneumococcal polysaccharide PPV23 6 completed Not Available [facility] 11/16/2023 09:43:34 Influenza, split virus, quadrivalent, preservative 8 completed Not Available [facility] 11/16/2023 09:43:34 Influenza, split virus, quadrivalent, preservative 1 completed Not Available [facility] 11/16/2023 09:43:34 COVID-19, mRNA, LNP-S, PF, 30 mcg/0.3 mL dose 1 completed Not Available [facility] 11/16/2023 09:43:34 COVID-19, mRNA, LNP-S, PF, 30 mcg/0.3 mL dose 2 completed Not Available [facility] 11/16/2023 09:43:34 influenza, unspecified formulation 2 completed Not Available [facility] 11/16/2023 09:43:34 zoster live 8 completed Not Available [facility] 11/16/2023 09:43:34 zoster live 8 completed Not Available [facility] 11/16/2023 09:43:34 Influenza, split virus, quadrivalent, preservative 9 completed Not Available [facility] 11/16/2023 09:43:34 COVID-19, mRNA, LNP-S, PF, 30 mcg/0.3 mL dose 1 completed Not Available [facility] 11/16/2023 09:43:34 COVID-19, mRNA, LNP-S, PF, 30 mcg/0.3 mL dose 1 completed Not Available [facility] 11/16/2023 09:43:34 Influenza, split virus, quadrivalent, preservative 0 completed Not Available [facility] 11/16/2023 09:43:34 Past Encounters Encounter ID Performer Location Encounter Start Date Encounter Closed Date Diagnosis/Indication Diagnosis SNOMED-CT Code Diagnosis ICD10 Code Diagnosis Note [id number] Hugh Chavez DO [facility] [address] [facility], [place] [address] 03/12/2018 16:15:48 03/12/2018 17:25:35 Type 2 diabetes mellitus 13506075 E11.9 Essential hypertension 48927378 I10 Paroxysmal supraventricular tachycardia 48464729 I47.1 Change in skin lesion 39 1994026 L98.9 [id number] January SANDRA Hebert [facility] [address] [facility], [place] [address] 06/15/2018 15:57:55 06/15/2018 17:00:31 Type 2 diabetes mellitus 80608045 E11.9 will add metformin as he's never been on this medication before recommend continuing to check bs every 4-6 hours per day to ensure no hypoglycem ia will also gradually increase humalog to 20 units pending his blood sugar will schedule eye exam Essential hypertension 45123677 I10 well controlled Hypercholesterolemia 136 04514 E78.00 will do fasting labs this time Acute low back pain 2788 61975 M54.5 Paroxysmal supraventricular tachycardia 95226298 I47.1 rate controlled on metoprolol [id number] Hugh Chavez DO [facility] [address] [facility], [place] GramVaaniIRA [facility] [place] [address] 09/14/2018 15:56:40 09/14/2018 16:34:59 Adult health examination 565063577 Z00.00 Screening for cardiovascular system disease 185180599 Z13.6 needds cholkester ol Type 2 luiza betes mellitus 23915097 E11.9 will add metformin as he's never been on this medication before recommend continuing to check bs every 4-6 hours per day to ensure no hypoglycem ia will also gradually increase humalog to 20 units pending his blood sugar will schedule eye exam Essential hypertension 10276936 I10 well controlled and is doing ok will keep meds as they are Hepatitis C screening 41 1658218 Z11.59 needs screening Coronary atherosclerosis 382078455 I25.10 [id number] Hugh Chavez [facility] [address] [facility],[place] [address] AvidBioticsIRA [facility] [place] [address] 01/29/2019 15:47:47 01/29/2019 16:55:01 Type 2 diabetes mellitus 78812290 E11.9 has stopped his 50 u lantus and will now check his a1c this week Essential hypertension 03020408 I10 well controlled and is doing ok will keep meds as they are [id number] Hugh Chavez DO [facility] [address] [facility] [address],[place] [address] 05/17/2019 15:55:24 05/17/2019 16:52:34 Hypercholesterolemia 64497215 E78.00 will do fasting labs this time Type 2 luiza betes mellitus 25963333 E11.9 has stopped his 50 u lantus and will now check his a1c this week his a1c at 7.0 and we will keep him off and he will cont humalog on a sliding scale basis Essential hypertension 29389347 I10 well controlled and is doing ok will keep meds as they are Paroxysmal supraventricular tachycardia 35155046 I47.1 rate controlled on metoprolol Acute non- ST segment elevation myocardial infarction 437556174 I21.4 quiet and doing ok no major issues [id number] Hugh Chavez DO [facility] [address] [facility],[place] [address] 09/20/2019 15:50:23 09/20/2019 16:38:03 Type 2 diabetes mellitus 26591772 E11.9 only using the humalog and will his a1c at 6.5 and we will keep him off and he will cont humalog on a sliding scale basis Essential hypertension 10599509 I10 well controlled and is doing ok will keep meds as they are [id number] Hugh Chavez DO [facility] [address] [facility],[place] [address] 11/29/2019 15:47:21 11/29/2019 16:37:31 Type 2 diabetes mellitus 00020953 E11.9 now on trulicity with metformin and is doing ok will be following w dr taylor and will have blood work then not taking humalog a1c is from dr taylor Essential hypertension 80192263 I10 well controlled and is doing ok will keep meds as they are Acute non- ST segment elevation myocardial infarction 517305114 I21.4 quiet and doing ok no major issues Paroxysmal supraventricular tachycardia 20015449 I47.1 rate controlled on metoprolol and no further issues [id number] Hugh hCavez DO [facility] [address] [facility],[place] [address] 04/03/2020 11:29:07 04/03/2020 12:17:56 Coronary atherosclerosis 933294201 I25.10 stable no cp asymptomat ic and feeling great no sob Essential hypertension 71875838 I10 well controlled and is doing ok will keep meds as they are Hypercholesterolemia 136 37816 E78.00 will do fasting labs this time Paroxysmal supraventricular tachycardia 90428018 I47.1 rate controlled on metoprolol and no further issues Type 2 luiza betes mellitus 20847198 E11.9 now on trulicity with metformin and is doing ok will be following w dr taylor and will have blood work then also is now on Lantus 20 u but does not feel is doing well not taking humalog a1c is from dr taylor [id number] CAROLE ARREGUIN [facility] [address] [facility] [address] [address] 05/11/2020 13:27:18 05/11/2020 14:28:12 Syncope 642591146 R55 the patient is doing much better today feels better, no dizziness, wooziness or lightheadn ess Heat exhaustion 36819879 T67.5XXD as above resolved Contusion of foot 843977 04 S90.31XA will keep an eye on the foot and see if the color discolorat ion happens again will f/u with US of the vessels if needed told daughter to monitor it only gets bruising of the foot Type 2 luiza betes mellitus [id number] E11.9 would like another A1c done as the one at specialist did not do an actual a1c measure but measured it from BS counts per patient and meter results which he does not think are reliable enough to have an accurate measuremen t [id number] Hugh Chavez, [facility] [address] [facility],[place] [address] 08/03/2020 10:39:19 08/03/2020 12:30:22 Essential hypertension 38486349 I10 well controlled and is doing ok will keep meds as they are Type 2 luiza betes mellitus 41475858 E11.9 now on trulicity with metformin and is doing ok will be following w dr taylor and will have blood work then also is now on Lantus 20 u but does not feel is doing well last a1c is 8.0 in april but we zahra check today Paroxysmal supraventricular tachycardia 42191114 I47.1 rate controlled on metoprolol and no further issues Coronary atherosclerosis 399035808 I25.10 stable no cp asymptomat ic and feeling great no sob Influenza- like illness 97269567 B34.9 feels he had covid in november Hugh Chavez DO [facility] [address] [facility] [address],[place] [facility] [place] [address] 01/18/2021 14:07:26 01/18/2021 14:55:49 Hypercholesterolemia 32923935 E78.00 will do fasting labs this time Type 2 luiza betes mellitus 65865970 E11.9 now on trulicity with metformin and is doing ok will be following joseline taylor and will have blood work then also is now on Lantus 20 u but does not feel is doing well given such we will; start him on basaglar at 10 units q pm everything else the same last a1c is 8.0 in april and now he is still at 8.0 Essential hypertension 70215052 I10 well controlled and is doing ok [place] [id number] Hugh Chavez [facility] [address] [facility],[place] [facility] [place] [address] 04/26/2021 13:41:37 04/26/2021 14:10:23 Type 2 diabetes mellitus 27356203 E11.9 now on trulicity with metformin and is doing ok will be following w dr taylor and will have blood work then also is now on Lantus 20 u but does not feel is doing well given such we will; start him on basaglar at 10 units q pm everything else the same last a1c is 8.0 in april and now he is still at 8.0 Essential hypertension 45551457 I10 well controlled and is doing ok will keep meds as they are Acute non- ST segment elevation myocardial infarction 099981324 I21.4 quiet and doing ok no major issues Paroxysmal supraventricular tachycardia 28268624 I47.1 rate controlled on metoprolol and no further issues [id number] Hugh Chavez DO [facility] [address] [facility] [address],[place] [facility] [place] [address] 08/24/2021 13:20:08 08/24/2021 15:11:48 Type 2 diabetes mellitus 18177343 E11.9 now on trulicity with metformin and is doing ok will be following joseline taylor and will have blood work then also is now on Lantus 30 unow he is at 8.5 last a1c is 7.2 in march Essential hypertension 70247461 I10 well controlled and is doing ok will keep meds as they are Hypercholesterolemia 136 73478 E78.00 will do fasting labs this time [id number] Hugh Chavez DO [facility] [address] [facility] [address],[place] [address] 01/19/2022 10:38:41 01/21/2022 11:55:29 Type 2 diabetes mellitus 52385361 E11.9 will try to get back on trulicity with metformin and is doing ok will be following w dr taylor and will have blood work then also is now on Lantus 30 unow he is at 8.4 last a1c is 8.5 in oct Acute non- ST segment elevation myocardial infarction 762416540 I21.4 quiet and doing ok no major issues Paroxysmal supraventricular tachycardia 18526541 I47.1 rate controlled on metoprolol and no further issues Essential hypertension 34667631 I10 well controlled and is doing ok [place] they are [id number] Hugh Chavez DO [facility] [address] [facility] [address],[place] [address] 05/30/2022 12:10:51 05/30/2022 13:06:36 Type 2 diabetes mellitus 21332839 E11.9 will try to get back on trulicity with metformin and is doing ok will be following w dr taylor and will have blood work then also is now on Lantus 30 unow 7.5 and was prior at 8.4 last a1c is 8.5 in oct Essential hypertension 86696737 I10 well controlled and is doing ok will keep meds as they are Hypercholesterolemia 136 53145 E78.00 will do fasting labs this time Coronary atherosclerosis 386569674 I25.10 stable no cp asymptomat ic and feeling great no sob [id number] CAROLE ARREGUIN [facility] [address] [facility] [address] [address] 07/11/2022 10:41:53 07/11/2022 11:34:08 Impacted cerumen 65566720 H61.23 fu in a week [id number] CAROLE ARREGUIN [facility] [address] [facility] [address],[place] [address] 07/19/2022 10:08:05 07/19/2022 10:32:58 Impacted cerumen of bilateral ears 5685664374 360160 H61.23 fu in a few weeks for retry [id number] CAROLE ARREGUIN [facility] [address] [facility] [place] [address] 08/02/2022 10:22:13 08/02/2022 11:03:51 Impacted cerumen 65173104 H61.23 resolved [id number] Hugh Chavez DO [facility] [address] [facility] [place] [address] 11/18/2022 09:47:37 11/18/2022 12:08:32 Type 2 diabetes mellitus 55462978 E11.9 will try to get back on trulicity with metformin and is doing ok will be following w dr taylor and will have blood work then also is now on Lantus 30 unow 8.2 was 7.5 and was prior at 8.4 last a1c is 8.5 in jul Essential hypertension 07760874 I10 well controlled and is doing ok will keep meds as they are Acute non- ST segment elevation myocardial infarction 541232040 I21.4 quiet and doing ok no major issues Paroxysmal supraventricular tachycardia 66916343 I47.1 rate controlled on metoprolol and no further issues Hepatitis C screening 41 0028832 Z11.59 needs screening Screening for malignant neoplasm of colon 888127635 Z12.11 Insomnia 628793724 G47.0 0 [id number] CAROLE ARREGUIN [facility] [address] [facility] [address] 01/31/2023 09:23:48 01/31/2023 11:17:11 Essential hypertension 58176199 I10 BP elevated; stable at home per patient Hypercholesterolemia 136 78127 E78.01 needs recheck; has regular fu with ALEXANDER scheduled Impacted cerumen 9700146 6 H61.23 resolvedag sharon to set up 6 mos fu for re-evaluat ion given the frequency of how he builds up wax Type 2 luiza betes mellitus 56911888 E11.9 needs BW prior to appt with ALEXANDER [id number] Hugh Chavez DO [facility] [address] [facility],[place] [facility] [place] [address] 02/03/2023 10:29:58 02/03/2023 11:32:42 Type 2 diabetes mellitus 12304111 E11.9 will try to get back on trulicity with metformin and is doing ok will be following w dr taylor and will have blood work then also is now on Lantus 30 unow 8.2 was 7.5 and was prior at 8.4 last a1c is 8.5 in jul Essential hypertension 64358895 I10 well controlled and is doing ok will keep meds as they are Pain in le ft lower limb 607333354 M79.605 wonderi if this is a knee strain aof joint as well as hamstring Coronary atherosclerosis 023102624 I25.10 stable no cp asymptomat ic and feeling great no sob Strain of hamstring tendon 820130454 S76.311A will put ice for days when he is pushing it outside and at workheat if an at home day Pain in ri ght lower limb 654286383 M79.604 [id number] Hugh Chavez, [facility] [address] [facility],[place] [address] 02/14/2023 14:41:32 02/14/2023 15:43:10 Pain of right knee joint 9679167043 36890 M25.561 try to treat conserv (xray was excellent) presume cartilage irritation if he suddenly develops issues will call and MRI will be ordered pt understand s and agrees. Chronic insomnia 8128045 04 F51.04 pt requesting refill of zolpidem note: he has been on this med for several years prior to being a pt with me. he relates he had tried multiple meds over the years and zolpidem has been the safest and most effective. i explained to him that given his age we need to monitor this closely and if any issues arise we will need to stop and he agrees and understand s. [id number] Hugh Chavez, [facility] [address] [facility],[place] [address] 05/24/2023 13:24:56 05/24/2023 14:18:31 Hyperkalemia 95392824 E87.5 non issue was a lab issue Essential hypertension 67015036 I10 well controlled and is doing ok will keep meds as they are Type 2 luiza betes mellitus 21900748 E11.9 a1c is down to 8.1 from 8.5 work then also is nowincreas ing Lantus to 35unow 8.2 was 7.5 and was prior at 8.4 last a1c is 8.5 in jul Derangemen t of right knee 9162148662 5563350 M23.91 has evid of meniscal damage will need mri [id number] Hugh Chavez [facility] [address] [facility] [address],[place] [address] 06/20/2023 11:07:44 06/20/2023 11:38:53 Diverticulitis of sigmoid colon 530324861 K57.32 [id number] Hugh Chavez [facility] [address] [facility],[place] [address] 06/23/2023 09:50:42 06/26/2023 11:46:57 Essential hypertension 90822865 I10 well controlled and is doing ok will keep meds as they are Type 2 luiza betes mellitus 38523687 E11.9 a1c is down to 8.1 from 8.5 work then also is now tolerating the increse of Lantus to 35unow 8.2 was 7.5 and was prior at 8.4 last a1c is 8.5 in jul Insomnia 706009217 G47.0 0 will use sporadical ly Paroxysmal supraventricular tachycardia 12808380 I47.1 rate controlled on metoprolol and no further issues [id number] Hugh Chavez [facility] [address] [facility],[place] [address] 07/11/2023 15:13:29 07/11/2023 16:19:58 Pain of right knee joint 6038096996 26014 M25.561 cortisone inj well deanne try to treat conserv (xray was excellent) presume cartilage irritation if he suddenly develops issues will call and MRI will be ordered pt understand s and agrees. [id number] Hugh Chavez [facility] [address] [facility],[place] [address] 08/25/2023 09:53:34 08/25/2023 12:17:52 Essential hypertension 45929898 I10 well controlled and is doing ok will keep meds as they are Hypercholesterolemia 136 27371 E78.01 will do fasting labs this time Type 2 luiza betes mellitus 93403162 E11.9 a1c is pending as he has not done yet this time down to 8.1 from 8.5 work then also is now tolerating the increse of Lantus to 35unow 8.2 was 7.5 and was prior at 8.4 last a1c is 8.5 in jul Coronary atherosclerosis 857951519 I25.10 stable no cp asymptomat ic and feeling great no sob Pain in ri ght hip joint 8958358227 12024 M25.551 seem all muscular we will give him some flexeril [id number] Hugh Chavez [facility] [address] [facility], [place] [address] 09/12/2023 13:25:49 09/12/2023 14:08:12 Tear of meniscus of knee 326379326 S83.206A deanne kylie inj [id number] Hugh Chavez [facility] [address] [facility],[place] [address] 10/03/2023 14:09:41 10/04/2023 08:13:48 Type 2 diabetes mellitus 69090702 E11.9 a1c is pending as he has not done yet this time down to 8.1 from 8.5 work then also is now tolerating the increse of Lantus to 35unow 8.2 was 7.5 and was prior at 8.4 last a1c is 8.5 in oct Essential hypertension 60485071 I10 increase metoprolol to two tab daily [id number] Hugh Chavez DO [facility] [address] [facility], [place] [address] 01/02/2024 13:34:29 01/02/2024 14:21:02 Essential hypertension 81372097 I10 increase metoprolol to two tab daily and bp is down to from 160's Type 2 luiza betes mellitus 54948319 E11.9 a1c is 7.9!!! down to 8.1 from 8.5 work then also is now tolerating the increse of Lantus to 35unow 8.2 was 7.5 and was prior at 8.4 last a1c is 8.5 in jul Coronary atherosclerosis 847681827 I25.10 stable no cp asymptomat ic and feeling great no sob [id number] Hugh Chavez, [facility] [address] [facility],[place] [address] 05/15/2024 15:07:13 05/15/2024 15:43:09 Adult health examination 690837501 Z00.00 doing ok exept for the sugar he needs to buckle down on his diet Screening for cardiovascular system disease 097594878 Z13.6 needs cholestero l Depression screening 171 677642 Z13.31 neg Type 2 luiza betes mellitus 26798801 E11.9 a1c is now up to 8.9 and was 7.9!!! down to 8.1 from 8.5 work then also is now tolerating the increse of Lantus to 35unow 8.2 was 7.5 and was prior at 8.4 last a1c is 8.5 in jul Essential hypertension 89192120 I10 increase metoprolol to two tab daily and bp is down to from 160's Paroxysmal supraventricular tachycardia 41717300 I47.10 here for rechk and is doing well no palpitatio ns Coronary atherosclerosis 840315691 I25.10 stable no cp asymptomat ic and feeling great no sob Gastroesop hageal reflux disease 222924168 K21.9 [id number] Hugh Chavez, [facility] [address] [facility],[place] [address] 09/02/2024 11:21:41 09/02/2024 11:58:30 Type 2 diabetes mellitus 59461539 E11.9 a1c is pending now up to 8.9 and was 7.9!!! down to 8.1 from 8.5 work then also is now tolerating the increse of Lantus to 35unow 8.2 was 7.5 and was prior at 8.4 last a1c is 8.5 in jul Insomnia 181461948 G47.0 0 will use sporadical ly [id number] Lary Wang [facility] [address] [facility] [address],[place] [facility] [address] 12/31/2024 14:02:27 12/31/2024 16:17:48 Infection of tooth 304034614 K04.7 Atypical chest pain 1025 42322 R07.89 will set up with US echo, exercise stress, EKG STAT increase the aspirin to 325 mg, add additional BP medcontinu e on metoprolol and lisinopril Health Concerns Section Related Observation LastModified by Organization Detai ls LastModified Time None Recorded Concern Status LastModified by Organization Details LastModified Time None Recorded Advance Directives Directive None Recorded Payers Encounter Date Sequence Insurance Name Policy Number Policy Goode Covered Member ID Goode Member ID Guarantor Name 10/03/2023 2 [employer] OPT[employer] Price Aly [id number] Price Aly 10/03/2023 1 [place] [employer] Price Aly [id number] Price Aly 01/02/2024 2 [employer] Price Aly [id number] Price Aly 01/02/2024 1 [place] Price Aly [id number] Price Aly 05/15/2024 2 [employer] Price Aly [id number] Price Aly 05/15/2024 1 [place] [employer] Price Aly [id number] Price Aly 09/02/2024 2 [employer] Price Aly [id number] Price Aly 09/02/2024 1 [place] Price Aly [id number] Price Aly 12/31/2024 1 [place] [employer] Price Aly [id number] Price Aly 12/31/2024 2 [employer] (MEDICARE SUPPLEMENT) Price Aly [id number] Price Aly Notes Date Note Type Note Provider Name and Address Organization Details Recorded Time 3 text/htm l here for rechk and is doing ok overallstates his knee is doing better overallknee calmed down on its own and is doing prettybp is still a bit elevated even at home Hugh A. Bigda, DO [address] [place], [address], [facility] 10/03/2023 14:43:07 4 text/htm l Care Management - DiabetesReported bypatient.Self Care:seeing eye doctor yearly for dilated eye exam; checking feet regularly; normal range of home blood sugars (in the low 100s); no side effects from medications Associated Symptoms:symptoms are usually well controlled; no fatigue; no dizziness; no excessive sweating; no headaches; no confusion; no increased thirst; no increased appetite; no increased urination; no blurred vision; no numbness of feet; no calluses on feetCare Management - HypertensionReported bypatient.Self Care:not under emotional stress Severity:symptoms are improving; does not interfere with daily activities Associated Symptoms:no dizziness; no lightheadedness; no chest pain; no shortness of breath; no palpitations; no edema; no calf muscle cramps; no blurred vision; no confusion; no headaches; no fatigue here for rechkand is doing okrelates going to gym daily and is sore but feels goodhas dropped his bp Hugh Chavez DO [address] [place], [address], [facility] 01/02/2024 14:17:35 4 text/htm l Medicare Annual Wellness VisitReported bypatient.Diet and Nutrition:healthy diet Fracture Risk:no history of fractures; no recent explained fracture; no sudden unexplained fractures; no previous musculoskeletal injuries Physical Activity:exercises on a regular basis; recent increase in physical activity; good physical condition Depression Risk:never feels sad, empty, or tearful; no loss of interest in activities; no significant changes in weight; no sleep disturbances or insomnia; no agitation; no loss of energy; no feelings of worthlessness or guilt; no thoughts of suicide; no history of depression; no history of mood disorders Orientation:no disorientation to time; no disorientation to date; no disorientation to place Concentration and Memory:no decreased concentrating ability; no memory lapses or loss; does not forget words Speech/Motor difficulties:no speech difficulties; no difficulty expressing formulated concepts; no difficulty with fine manipulative tasks; no difficulty writing/copying; no slowed reaction time; does not knock things over when trying to pick them up Hearing:no loss of hearing Vision:no vision problems Activities of Daily Living:able to bathe with limited or no assistance; able to contol urination and bowels; able to dress with limited or no assistance; able to feed self with limited or no assistance; able to get out of chair or bed with limited or no assistance; able to groom with limited or no assistance; able to toilet with limited or no assistance Instrumental Activities of Daily Living:able to do house work with limited or no assistance; able to grocery shop with limited or no assistance; able to manage medications with limited or no assistance; able to manage money with limited or no assistance; able to prepare meals with limited or no assistance; able to use the phone with limited or no assistance Falls Risk Assessment:no frequent falls while walking; no fall in the past year; no fall since last visit; no dizziness/vertigo Home Safety:no unsafe roxanna hazzards; no unsafe stairs; no unsafe gas appliances; working smoke/CO detectors; wears protective head gear for biking/high velocity; use of seatbelts; practicing 'safer sex'; no vision or hearing loss while driving; no fire arms; has hand bars in the bathroom/shower; good lighting in the home has been having a lot of burping and has noticed a lot of acid reflux as of late Hugh Chavez, DO [address] [place], [address] 05/15/2024 15:40:52 4 text/htm l Care Management - DiabetesReported bypatient.Self Care:seeing eye doctor yearly for dilated eye exam; checking feet regularly; normal range of home blood sugars (in the low 100s); no side effects from medications Associated Symptoms:symptoms are usually well controlled; no fatigue; no dizziness; no excessive sweating; no headaches; no confusion; no increased thirst; no increased appetite; no increased urination; no blurred vision; no numbness of feet; no calluses on feetCare Management - HypertensionReported bypatient.Self Care:not under emotional stress Severity:symptoms are improving; does not interfere with daily activities Associated Symptoms:no dizziness; no lightheadedness; no chest pain; no shortness of breath; no palpitations; no edema; no calf muscle cramps; no blurred vision; no confusion; no headaches; no fatigue here for dm and bp doing Hugh Chavez DO [address] [facility], [place], [address], [facility] 09/02/2024 11:57:10 5 text/htm l BP elevated patient has been having blurred [...] 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
[2025-01-06 17:52] LABS: Appearance Urine Clear; Color Urine Yellow; Glucose Urine UA 500 mg/dL (Negative); Leukocyte Esterase Urine Negative (Negative); Nitrite Urine Negative (Negative); PH 5.5 (5.0-9.0); Urine Blood Negative (Negative); Urine Ketones Negative (Negative); Urine Protein Trace mg/dL (Neg-Trace)
== END 2025-01-06 14:03 | disposition home or self-care (01) ==
LOC: HO.MANLDS 14:02
PROVIDERS: Visit Provider Physician Assistant
DX: D64.9 Anemia, unspecified (principal)
CPT/HCPCS: 81003

== ENCOUNTER 2025-01-07 11:29 | Outpatient (REF) | payer MEDICARE, OTHER, SELFPAY ==
[2025-01-07 13:58] LABS: Estimated Average Glucose 220 mg/dL; Hemoglobin A1c % 9.3 % (<6.0)
[2025-01-07 14:09] LABS: Alanine Aminotransferase 24 U/L (0-40); Albumin Level 4.1 g/dL (3.5-5.0); Alkaline Phosphatase 100 U/L (39-117); Anion Gap 13 (12-20); Aspartate Amino Transferase 18 U/L (5-37); Bilirubin Total 0.4 mg/dL (0.0-1.0); Blood Urea Nitrogen 22 mg/dL (9-16); Calcium 8.9 mg/dL (8.4-10.2); Carbon Dioxide 21 mmol/L (22-29); Chloride 108 mmol/L (96-108); Cholesterol 133 mg/dL (<200); Estimated Glomerular Filt Rate 54; Glucose Random 219 mg/dL (60-115); HDL Cholesterol 42 mg/dL (>40); LDL Cholesterol Calculated 69 mg/dL (<100); Potassium 4.9 mmol/L (3.3-5.1); Sodium 137 mmol/L (135-145); Total Protein 7.2 g/dL (6.5-8.0); Triglycerides 112 mg/dL (<150)
== END 2025-01-07 11:30 | disposition home or self-care (01) ==
LOC: HO.MANLDS 11:29
PROVIDERS: Visit Provider Internal Medicine
DX: E11.9 Type 2 diabetes mellitus without complications (principal)
CPT/HCPCS: 36415; 80053; 80061; 83036

== ENCOUNTER 2025-01-10 11:00 | Outpatient (REF) | payer MEDICARE, OTHER, SELFPAY ==
--- OUTSIDE RECORDS SUMMARY | 2025-01-10 12:41 | XMS_ITS | Continuity of Care Document ---
Author Organization [facility], [facility] Address [address] [place] [address] Assessment No assessment recorded. Plan of Treatment Reminders Order Date Submit Date Provider Last Modified By Organization Details Last Modified Time Details Appointments FOLLOW UP 15 2024 10:30A M DR CHAVEZ Not available Not available Not available FOLLOW UP 15 2024 12:00P M DR CHAVEZ Not available Not available Not available Lab CMP, serum or plasma 2024 025 [facility], [address] [place] [address], [place], [address], 12/31/2024 15:08:27 pro BNP (pro B-type natriur etic peptide ), serum or plasma 2024 025 [facility], [address] [place] [address], [address], 12/31/2024 15:08:27 CBC w/ auto diff 2024 025 [facility], [address] [place] [address], [address], 01/02/2025 13:12:56 Referral cardiol ogist referra l 2024 025 [facility], [address], [place], [address], 01/01/2025 08:21:06 Procedures None recorde d. Surgeries None recorde d. Imaging US, echocar diogram 2024 025 [facility] Central Scheduling (Not Breast), [address] [place], [address], 01/01/2025 08:09:05 exercis e stress test 2024 025 [email or web address] [facility] Central Scheduling (Not Breast), [address] [place], [address], 12/31/2024 16:17:48 electro cardiog seema, routine ECG, 12 leads min 2024 025 [facility] Central Scheduling (Not Breast), [address] [place], [address], 01/07/2025 08:16:45 Medication Orders clindam ycin HCl 300 mg capsule [facility]24 [id number] [address] [place], [address], 12/31/2024 15:00:31 nitrogl ycerin 0.4 mg subling ual tablet 2024 025 [facility][id number], [address] [place], [address], 12/31/2024 15:02:23 hydroch lorothi azide 12.5 mg capsule 2024 025 [facility][id number], [address] [place], [address], 01/10/2025 10:55:43 Patient TargetsNo targets recorded. Patient InstructionsNo instructions recorded. 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 Slip Filler Referral for At ypical chest pain hx of NSTEMI, needs new cardiology Referring Physician: Charis Bhakta, Internal Medicine, Encounter Date: 12/31/2024 Problems Name Problem SNOMED Code Status Onset Date Resolution Date Notes Provider Name and Address Organization Details Recorded Time Type 2 diabetes mellitus 24724546 Active 2017 Anabella Darrian null, [facility] 4 10:31:03 Essential hypertensi on 81582493 [facility] 10:[facility] Hyperchole sterolemia 27176873 [facility] 2017 [facility] 4 10:31:03 Closed fracture of right wrist 4062578055666 9106 Active 2017 Anabella cano [facility] 4 10:31:24 Congenital inguinal hernia 566847413 Active 2017 [facility] 4 10:31:24 History of appendecto my 095184051 Active 2017 [facility] 4 10:31:03 Paroxysmal supraventr icular tachycardi a 87176900 [facility] 2017 [facility] 4 10:31:03 Acute non-ST segment elevation myocardial infarction 350443404 Active 02/2017 [facility] 4 10:31:03 Family history of stroke 311790229 [facility] 4 10:31:03 Coronary atheroscle rosis 738085555 Active 2017 Not Available [facility] 4 09:43:34 Insomnia 833529300 [facility] 2021 [facility] 4 10:31:03 Pain in left lower limb 924639122 [facility] 2021 [facility] 4 10:31:23 Cough 33028932 Active 2021 Anabella cano [facility] 4 10:31:24 Impacted cerumen 82434351 Active 2021 Anabella cano [facility] 4 10:31:23 Impacted cerumen of bilateral ears 6853823883466 108 Active 2021 Anabella Colmenares null, [facility] 4 10:31:23 Impacted cerumen 23365126 Active 2021 Anabella Colmenares null, [facility] 4 10:31:23 Hyperkalem ia 51951523 Active 2022 Anabella Colmenares null, [facility] 4 10:31:03 Strain of hamstring tendon 125934794 Active 2022 Anabella Colmenares null, [facility] 4 10:31:23 Pain of right knee joint 3197292073205 00 Active 2022 Anabella Colmenares null, [facility] 4 10:31:24 Chronic insomnia 330447733 Active 2022 Anabella Colmenares null, [facility] 4 10:31:03 Derangemen t of right knee 1502670479748 9109 Active 2022 Anabella Colmenares null, [facility] 4 10:31:03 Diverticul itis of sigmoid colon 500715594 Active 2022 Anabella Colmenares null, [facility] 4 10:31:03 Tear of meniscus of knee 070511845 Active 2022 Anabella Colmenares null, [facility] 4 10:31:23 Pain in right hip joint 9991398055238 02 Active 2022 Anabella Colmenares null, [facility] 4 10:31:23 Pain in right lower limb 661464381 Active 2022 Anabella Colmenares null, [facility] 4 10:31:23 Gastroesop hageal reflux disease 764823656 Active 2023 Anabella Colmenares null, [facility] 5 08:39:09 Infection of tooth 890457976 [facility] 5 08:39:13 Atypical chest pain 648486216 Active 2024 Anabella cano [facility] 5 08:39:09 Anemia 381794721 [facility] 2024 [facility] 5 08:39:09 Notes:Some problems listed i n Documents: #[id number], #[id number], #[id number] could not be added to this patient's chart. Please review these documents and add these problems to the patient's chart manually as needed. Problem Notes None recorded. Procedures Surgical History Date Name Laterality Status Provider Name and Address Organization Details Recorded Time 023 Corticosteroid Injection completed Hugh Chavez DO [address] [place] [address], [phone], [facility] 09/12/2023 13:43:12 023 Corticosteroid Injection completed Hugh Chavez DO [address] [place] [address], [phone], [facility] 07/11/2023 15:46:05 023 Cerumen Removal completed CAROLE ARREGUIN [address] [place] [address], [phone], [facility] 01/31/2023 09:53:04 022 Cerumen Removal completed CAROLE ARREGUIN [address] [place] [address], [phone], [facility] 08/02/2022 10:58:32 022 Cerumen Removal completed CAROLE ARREGUIN [address] [place] [address], [phone], [facility] 07/19/2022 10:37:40 022 Cerumen Removal completed CAROLE ARREGUIN [address] [place] [address], [phone], [facility] 07/11/2022 11:30:14 Imaging Results None recorded. Procedure Notes None recorded. Medical Equipment None Reported. Allergies Allergen ID Allergen Name Allergen Category Reaction Reaction Severity Criticality Documentation Date Start Date Code Code System Note Provider Name and Address Organization Details Recorded Time 241 penicilli n V Not available Not available Not available Not available 01/01/2018 7984 RxNorm [facility] [place] [facility] 8 11:30:51 Medications Name Sig [...] Not Available clindamycin HCl 300 mg capsule TAKE 1 CAPSULE BY MOUTH EVERY 6 HOURS FOR 10 DAYS active Not Available Not Available No t Available trazodone 50 mg tablet Take 1 tablet [...] Not Available hydrochloro thiazide 12.5 mg capsule TAKE 1 CAPSULE BY MOUTH EVERY DAY 01/10 completed Not Available Not Available Not Available nitroglycer in 0.[address] 1 TABLET UNDER TONGUE EVERY 5 MINUTES NEEDED FOR CHEST PAIN. MAX 3 TABS/EPIS ODE active Not Available Not Available No t Available lisinopril 30 mg tablet TAKE 1 TABLET [...] Available Not Available Not Available hydrochloro thiazide 25 mg tablet Take 1 tablet every day by oral route for 30 days. 2024 active Not Available Not Available Not Avai lable zolpidem 5 mg tablet TAKE 1 TABLET [...] Updated DateTime 5 170.18 cm 31 kg/m2 32986.2 9 g 69 /min 96 % 96 % 150 mm[Hg] 78 mm[Hg] Miles Estes [facility] 5 14:42:52 Social History Question Answer Notes LastModified by Organizat ion Details LastModified Time Tobacco Smoking Status Never Smoker Karlene cano [facility] 03/12/2018 17:04:43 What Was The Date Of Your Most Recent Tobacco Screening? 01/10/2025 Information not available 01/10/2025 Do You Or Have You Ever Used Any Other Forms Of Tobacco Or Nicotine? No Information not available 05/24/2023 Sex: Unknown Functional Status None recorded. Mental Status None recorded. Family History Nothing Reported. Medical History No medical history recorded. Immunizations Vaccine Type Date Status Note Provider Nam e and Address Organization Details Recorded Time pneumococcal polysaccharide PPV23 6 completed Not Available [facility] 11/16/2023 09:43:34 Influenza, split virus, quadrivalent, preservative 8 completed Not Available [facility] 11/16/2023 09:43:34 Influenza, split virus, quadrivalent, preservative 1 completed Not Available [facility] 11/16/2023 09:43:34 COVID-19, mRNA, LNP-S, PF, 30 mcg/0.3 mL dose 1 completed Not Available [facility] 11/16/2023 09:43:34 COVID-19, mRNA, LNP-S, PF, 30 mcg/0.3 mL dose 2 completed Not Available [facility] 11/16/2023 09:43:34 influenza, unspecified formulation 2 completed Not Available [facility] 11/16/2023 09:43:34 zoster live 8 completed Not Available [facility] 11/16/2023 09:43:34 zoster live 8 completed Not Available [facility] 11/16/2023 09:43:34 Influenza, split virus, quadrivalent, preservative 9 completed Not Available [facility] 11/16/2023 09:43:34 COVID-19, mRNA, LNP-S, PF, 30 mcg/0.3 mL dose 1 completed Not Available [facility] 11/16/2023 09:43:34 COVID-19, mRNA, LNP-S, PF, 30 mcg/0.3 mL dose 1 completed Not Available [facility] 11/16/2023 09:43:34 Influenza, split virus, quadrivalent, preservative 0 completed Not Available [facility] 11/16/2023 09:43:34 Past Encounters Encounter ID Performer Location Encounter Start Date Encounter Closed Date Diagnosis/Indication Diagnosis SNOMED-CT Code Diagnosis ICD10 Code Diagnosis Note [id number] Lary Wang [facility] [address],[place] [address] 12/31/2024 14:02:27 12/31/2024 16:17:48 Infection of tooth 779322638 K04.7 Atypical chest pain 1025 77912 R07.89 will set up with US echo, [...] ID Guarantor Name 12/31/2024 1 [place]: [employer] Price Aly [id number] Price Aly 12/31/2024 2 [employer] (MEDICARE SUPPLEMENT) Price Aly [id number] Price Aly Notes Date Note Type Note [...] 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
--- OUTSIDE RECORDS SUMMARY | 2025-01-10 12:42 | XMS_ITS | Continuity of Care Document ---
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 2 OUT OF 3 ELEMENTS: PROBLEMS, DATA OR RISK ELEMENT 1: PROBLEMS 1 OR MORE CHRONIC ILLNESS W/SEVERE EXACERBATION, PROGRESSION MAY REQUIRE HOSPITAL LEVEL CARE OR 1 ACUTE OR CHRONIC ILLNESS OR INJURY THAT POSES A THREAT TO LIFE OR BODILY FUNCTION ELEMENT 2: DATA: MUST MEET 2 OF 3 CATEGORIES CATEGORY 1 REVIEW OF PRIOR EXTERNAL NOTES REVIEW OF THE RESULTS ORDERING OF EACH TEST ASSESSMENT REQUIRING INDEPENDENT HISTORIAN(S) CATEGORY 2: INDEPENDENT INTERPRETATION OF TESTS BY ANOTHER PROVIDER/SPECIALI ST CATEGORY 3: DISCUSSION OF MGT OR TEST INTERPRETATION W/EXTERNAL PHYSICIAN/SPECIAL IST ELEMENT 3: RISK HIGH RISK OF MORBIDITY FROM ADDITIONAL DIAGNOSTIC TESTING OR TREATMENT PROVIDER MUST THOROUGHLY DOCUMENT EACH ELEMENT THAT IS COVERED The patient presented to their appointment today for multiple concerns requiring moderate to high-level decision making and took over 40-45 minutes for an adequate and appropriate history, exam, assessment and treatment plan. This appointment was done with an established patient. Not available 01/10/2025 10:54:15 Plan of Treatment Reminders Order Date Submit Date Provider Last Modified By Organization Details Last Modified Time Details Appointments FOLLOW UP 2024 10:30A M DR CHAVEZ Not available Not available Not available FOLLOW UP 2024 12:00P M DR CHAVEZ Not available Not available Not available Lab HbA1c (hemoglob in A1c), blood 2024 025 [facility], [address] [place] [address], [place], [address], 01/10/2025 11:03:47 iron + TIBC + ferritin, serum 2024 025 [facility], [address] [place] [address], [place], [address], 01/10/2025 11:03:47 vitamin B12 + folate, serum or blood 2024 025 [facility], [address] [place] [address], [place], [address], 01/10/2025 11:03:47 Referral None recorded. Procedures None recorded. Surgeries None recorded. Imaging None recorded. Medication Orders hydrochlo rothiazid e 25 mg tablet 2024 025 [id number], [address], [place], [address], 01/10/2025 10:57:47 Patient TargetsNo targets recorded. Patient Instructions Encounter Date Encounter Id Patient Instructions Last Modified By Organization Details Last Modified Time 01/10/2025 [id number] supraventricular tachycardia: care instructions Not available 01/10/2025 10:57:45 learning about t ype 2 diabetes Not available 01/10/2025 10:57:45 type 2 diabetes: care instructions Not available 01/10/2025 10:57:45 high blood press ure: care instructions Not available 01/10/2025 10:57:45 learning about h igh blood pressure Not available 01/10/2025 10:57:45 anemia: care instructions Not available 01/10/2025 10:57:45 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 None Reported. Problems Name Problem SNOMED Code Status Onset Date Resolution Date Notes Provider Name and Address Organization Details Recorded Time Type 2 diabetes mellitus 73823217 Active 2017 [facility] 4 10:31:03 Essential hypertensi on 90182890 Active 2017 [facility] 4 10:31:03 Hyperchole sterolemia 48811836 [facility] 10:[facility] Closed fracture of right wrist 7009048249670 9106 Active 2017 [facility] 4 10:31:24 Congenital inguinal hernia 375402262 Active 2017 [facility] 4 10:31:24 History of appendecto my 276308481 Active 2017 [facility] 4 10:31:03 Paroxysmal supraventr icular tachycardi a 65658444 Active 2017 [facility] 4 10:31:03 Acute non-ST segment elevation myocardial infarction 182197769 Active 02/2017 [facility] 4 10:31:03 Family history of stroke 098325232 Active 2017 [facility] 4 10:31:03 Coronary atheroscle rosis 966364341 Active 2017 Not Available [facility] 4 09:43:34 Insomnia 594534352 Active 2021 [facility] 4 10:31:03 Pain in left lower limb 931564733 Active 2021 [facility] 4 10:31:23 Cough 98516046 Active 2021 Anabella cano [facility] 4 10:31:24 Impacted cerumen 06198701 Active 2021 [facility] 4 10:31:23 Impacted cerumen of bilateral ears 0145919589209 108 Active 2021 Anabella cano [facility] 4 10:31:23 Impacted cerumen 67108983 Active 2021 Anabella Colmenares null, [facility] 4 10:31:23 Hyperkalem ia 42676152 Active 2022 Anabella Colmenares null, [facility] 4 10:31:03 Strain of hamstring tendon 410027116 Active 2022 Anabella Colmenares null, [facility] 4 10:31:23 Pain of right knee joint 8871205749623 00 Active 2022 Anabella Colmenares null, [facility] 4 10:31:24 Chronic insomnia 093978574 Active 2022 Anabella Colmenares null, [facility] 4 10:31:03 Derangemen t of right knee 7050833252825 9109 Active 2022 Anabella Colmenares null, [facility] 4 10:31:03 Diverticul itis of sigmoid colon 846076394 Active 2022 Anabella Colmenares null, [facility] 4 10:31:03 Tear of meniscus of knee 705532866 Active 2022 Anabella Colmenares null, [facility] 4 10:31:23 Pain in right hip joint 3931391835546 02 Active 2022 Anabella Colmenares null, [facility] 4 10:31:23 Pain in right lower limb 204074955 Active 2022 Anabella Colmenares null, [facility] 4 10:31:23 Gastroesop hageal reflux disease 924812923 Active 2023 Anabella Colmenares null, [facility] 5 08:39:09 Infection of tooth 392431731 Active 2024 Anabella Colmenares null, [facility] 5 08:39:13 Atypical chest pain 764295798 Active 2024 Anabella Colmenares null, [facility] 5 08:39:09 Anemia 467688854 [facility] 2024 [facility] 08:[facility]:09 Notes:Some problems listed i n Documents: #[id number], #[id number], #[id number] could not be added to this patient's chart. Please review these documents and add these problems to the patient's chart manually as needed. Problem Notes None recorded. Procedures Surgical History Date Name Laterality Status Provider Name and Address Organization Details Recorded Time 023 Corticosteroid Injection completed Hugh Chavez DO [address] [place] [address], [phone], [facility] 09/12/2023 13:43:12 023 Corticosteroid Injection completed Hugh Chavez DO [address] [place] [address], [phone], [facility] 07/11/2023 15:46:05 023 Cerumen Removal completed CAROLE ARREGUIN [address] [place] [address], [phone], [facility] 01/31/2023 09:53:04 022 Cerumen Removal completed CAROLE ARREGUIN [address] [place] [address], [phone], [facility] 08/02/2022 10:58:32 022 Cerumen Removal completed CAROLE ARREGUIN [address] [place] [address], [phone], [facility] 07/19/2022 10:37:40 022 Cerumen Removal completed CAROLE ARREGUIN [address] [place] [address], [phone], [facility] 07/11/2022 11:30:14 Imaging Results None recorded. Procedure Notes None recorded. Medical Equipment None Reported. Allergies Allergen ID Allergen Name Allergen Category Reaction Reaction Severity Criticality Documentation Date Start Date Code Code System Note Provider Name and Address Organization Details Recorded Time 241 penicilli n V Not available Not available Not available Not available 01/01/2018 7984 RxNorm Bettina cano [place] - [facility] 8 11:30:51 Medications Name Sig [...] 2nd Gen Pen Needle 32 gauge x 5/32 USE 1 PEN NEEDLE TO INJECT INSULIN [...] Not Available Vitals Date Recorded Body height Heart rate Oxygen saturation Oxygen saturation in Arterial blood by Pulse oximetry Systolic blood pressure Diastolic blood pressure Provider Name and Address Organization Details Last Updated DateTime 5 170.18 cm 66 /min 97 % 97 % 194 mm[Hg] 82 mm[Hg] Anabella Darrian [facility] 5 10:24:17 Social History Question Answer Notes LastModified by Organizat ion Details LastModified Time Tobacco Smoking Status [facility] 03/12/2018 17:04:43 What Was The Date Of Your Most Recent Tobacco Screening? 01/10/2025 Information not available 01/10/2025 Do You Or Have You Ever Used Any Other Forms Of Tobacco Or Nicotine? No [email or web address] Information not available 05/24/2023 Sex: Unknown Functional Status None recorded. Mental Status None recorded. Family History Nothing Reported. Medical History No medical history recorded. Immunizations Vaccine Type Date Status Note Provider Nam e and Address Organization Details Recorded Time pneumococcal polysaccharide PPV23 6 completed Not Available On license of [facility] 11/16/2023 09:43:34 Influenza, split virus, quadrivalent, preservative 8 completed Not Available On license of [facility] 11/16/2023 09:43:34 Influenza, split virus, quadrivalent, preservative 1 completed Not Available [facility] 11/16/2023 09:43:34 COVID-19, mRNA, LNP-S, PF, 30 mcg/0.3 mL dose 1 completed Not Available [facility] 11/16/2023 09:43:34 COVID-19, mRNA, LNP-S, PF, 30 mcg/0.3 mL dose 2 completed Not Available [facility] 11/16/2023 09:43:34 influenza, unspecified formulation 2 completed Not Available [facility] 11/16/2023 09:43:34 zoster live 8 completed Not Available [facility] 11/16/2023 09:43:34 zoster live 8 completed Not Available [facility] 11/16/2023 09:43:34 Influenza, split virus, quadrivalent, preservative 9 completed Not Available [facility] 11/16/2023 09:43:34 COVID-19, mRNA, LNP-S, PF, 30 mcg/0.3 mL dose 1 completed Not Available [facility] 11/16/2023 09:43:34 COVID-19, mRNA, LNP-S, PF, 30 mcg/0.3 mL dose 1 completed Not Available On license of [facility] 11/16/2023 09:43:34 Influenza, split virus, quadrivalent, preservative 0 completed Not Available [facility] 11/16/2023 09:43:34 Past Encounters Encounter ID Performer Location Encounter Start Date Encounter Closed Date Diagnosis/Indication Diagnosis SNOMED-CT Code Diagnosis ICD10 Code Diagnosis Note [id number] Lary Wang [facility] [address],[place] [address] 12/31/2024 14:02:27 12/31/2024 16:17:48 Infection of tooth 827273064 K04.7 Atypical chest pain 1025 92225 R07.89 will set up with US echo, exercise stress, EKG STAT increase the aspirin to 325 mg, add additional BP medcontinu e on metoprolol and lisinopril [id number] Hugh Chavez DO [facility] [address], [place] [address] 01/10/2025 10:18:21 01/10/2025 11:07:20 Atypical chest pain 963258566 R07.89 has ETT and echo ordered also has cardiol consult ordered Anemia 676494989 D64.9 not seen before will order follow up lab Coronary atherosclerosis 394373260 I25.10 stable no cp asymptomat ic and feeling great no sob Essential hypertension 10562595 I10 increase metoprolol to two tab daily and bp is down to from 160'swill increase the hctz to 25 Paroxysmal supraventricular tachycardia 14200386 I47.10 here for rechk and is doing well no palpitatio ns Type 2 luiza betes mellitus 03110291 E11.9 a1c is pending now up to 8.9 and was 7.9!!! down to 8.1 from 8.5 work then also is now tolerating the increse of Lantus to 35unow 8.2 was 7.5 and was prior at 8.4 last a1c is 8.5 in jul Health Concerns Section Related Observation LastModified by Organization Detai ls LastModified Time None Recorded Concern Status LastModified by Organization Details LastModified Time None Recorded Payers Encounter Date Sequence Insurance Name Policy Number Policy Goode Covered Member ID Goode Member ID Guarantor Name 01/10/2025 1 [place]ICARE [place]: [employer] Price Aly [id number] Price Aly 01/10/2025 2 [employer] (MEDICARE SUPPLEMENT) Price Aly [id number] Price Aly Notes Date Note Type Note Provider Name and Address Organization Details Recorded Time 5 text/htm l Care Management - DiabetesReported bypatient.Self [...] no numbness of feet; no calluses on feetNotes:has noted to have some discomfort to left arm mostly can be at restexertional dyspnea is on occasion or when doing something vigorousCare Management - HypertensionReported bypatient.Self Care:not under emotional stress Severity:symptoms are improving; does not interfere with daily activities Associated Symptoms:no dizziness; no lightheadedness; no chest pain; no shortness of breath; no palpitations; no edema; no calf muscle cramps; no blurred vision; no confusion; no headaches; no fatigue here for dm and bp doing ok overall but states that he is having an issue with occ left arm pain and some exert dyspnea did not get labwork like i asked him to in august Hugh Chavez, DO [address], [place], [address], [facility] 01/10/2025 10:59:24
--- OUTSIDE RECORDS SUMMARY | 2025-01-10 12:42 | XMS_ITS | Data Portability ---
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) MDM HIGH MUST MEET 2 OUT OF [...] available Not available Not available Lab HbA1c (hemogl obin A1c), blood 2024 025 [facility], [address] [place] [address], [place], [address], 01/10/2025 11:03:47 iron + TIBC + ferriti n, serum 2024 025 [facility], [address] [place] [address], [address], 01/10/2025 11:03:47 vitamin B12 + folate, serum or blood 2024 025 [facility], [address] [place] [address], [address], 01/10/2025 11:03:47 CMP, serum or plasma 2024 025 [facility], [address] [place] [address], [address], 12/31/2024 15:08:27 pro BNP (pro B-type natriur etic peptide ), serum or plasma 2024 025 [facility], [address] [place] [address], [address], 12/31/2024 15:08:27 CBC w/ auto diff 2024 025 [facility], [address] [place] [address], [address], 01/02/2025 13:12:56 HbA1c (hemogl obin A1c), blood 2023 024 [facility], [address] [place] [address], [address], 09/02/2024 12:02:58 HbA1c (hemogl obin A1c), blood 2023 024 [facility], [address] [place] [address], [address], 05/15/2024 15:35:13 microal bumin, urine 2023 024 [facility], [address] [place] [address], [address], 05/15/2024 15:40:58 lipid panel, blood 2023 024 [facility], [address] [place] [address], [address], 05/15/2024 15:35:12 CMP, serum or plasma 2023 024 [facility], [address] [place] [address], [address], 05/15/2024 15:35:12 CBC 2023 024 [facility], [address] [place] [address], [address], 05/15/2024 15:35:12 PSA, serum or plasma 2023 024 [facility], [address] [place] [address], [address], 05/15/2024 15:35:13 Referral cardiol ogist referra l 2024 025 [facility], [place], [address], 01/01/2025 08:21:06 Procedures None recorde d. Surgeries None recorde d. Imaging US, echocar diogram 2024 025 [facility] Central Scheduling (Not Breast), [address] [place], [address], 01/01/2025 08:09:05 exercis e stress test 2024 025 [email or web address] [facility] Imaging Central Scheduling (Not Breast), [address] [place], [address], 12/31/2024 16:17:48 electro cardiog seema, routine ECG, 12 leads min 2024 025 [email or web address]patient Imaging Central Scheduling (Not Breast), [address] [place], [address], 01/07/2025 08:16:45 Medication Orders hydroch lorothi azide 25 mg tablet 2024 025 [facility]Pharmacy #[id number], [address] [place], [address], 01/10/2025 10:57:47 clindam ycin HCl 300 mg capsule 2024 [facility]25 [id number] [address] [place], [address], 12/31/2024 15:00:31 nitrogl ycerin 0.4 mg subling ual tablet 2024 025 [facility]acy #[id number], [address] [place], [address], 12/31/2024 15:02:23 hydroch lorothi azide 12.5 mg capsule 2024 025 [facility]acy #0373, [address] [place], [address], 01/10/2025 10:55:43 zolpide m 5 mg tablet 2023 024 [facility]acy #0373, [address] [place], [address], 09/02/2024 11:56:38 Mounjar o 5 mg/0.5 mL subcuta neous pen injecto r 2023 024 [facility] #[id number], [address] [place], [address], 09/02/2024 11:35:15 omepraz ole 20 mg capsule ,delaye d release 2023 024 [facility] #0373, [address] [place], [address], 05/15/2024 15:40:32 Patient TargetsNo targets recorded. Patient Instructions Encounter Date Encounter Id Patient Instructions Last Modified By Organization Details Last Modified Time 05/15/2024 [id number] gastroesophageal reflux disease (GERD): care instructions Not available 05/15/2024 15:40:30 Discussed and explained advance directives such as standard forms to the {{patient caregiver patient and caregiver}}. Face to face discussion lasted for a duration of ___ minutes. Not available 04/17/2024 10:30:03 09/02/2024 [id number] learning about t ype 2 diabetes Not available 09/02/2024 11:56:36 type 2 diabetes: care instructions Not available 09/02/2024 11:56:36 01/10/2025 [id number] supraventricular tachycardia: care instructions Not available 01/10/2025 10:57:45 learning about t ype 2 diabetes Not available 01/10/2025 10:57:45 type 2 diabetes: care instructions Not available 01/10/2025 10:57:45 high blood press ure: care instructions Not available 01/10/2025 10:57:45 learning about h igh blood pressure Not available 01/10/2025 10:57:45 anemia: care instructions Not available 01/10/2025 10:57:45 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 Problems Name Problem SNOMED Code Status Onset Date Resolution Date Notes Provider Name and Address Organization Details Recorded Time Type 2 diabetes mellitus 69992965 Active 2017 [facility] 4 10:31:03 Essential hypertensi on 48145038 Active 2017 [facility] 4 10:31:03 Hyperchole sterolemia 74042104 Active 2017 [facility] 10[facility]:03 Closed fracture of right wrist 4147625048182 9106 Active 2017 [facility] 4 10:31:24 Congenital inguinal hernia 892653732 Active 2017 R [facility] 4 10:31:24 History of appendecto my 089583486 Active 2017 [facility] 4 10:31:03 Paroxysmal supraventr icular tachycardi a 62893182 Active 2017 [facility] 4 10:31:03 Acute non-ST segment elevation myocardial infarction 261107532 Active 02/2017 [facility] 4 10:31:03 Family history of stroke 920324426 Active 2017 [facility] 4 10:31:03 Coronary atheroscle rosis 409937801 Active 2017 Not Available [facility] 4 09:43:34 Insomnia 304842341 Active 2021 [facility] 4 10:31:03 Pain in left lower limb 900394964 Active 2021 [facility] 4 10:31:23 Cough 09232667 Active 2021 Anabella cano [facility] 4 10:31:24 Impacted cerumen 46582598 Active 2021 [facility] 4 10:31:23 Impacted cerumen of bilateral ears 1574821225284 108 Active 2021 Anabella cano [facility] 4 10:31:23 Impacted cerumen 02391308 Active 2021 Anabella cano [facility] 4 10:31:23 Hyperkalem ia 75005013 Active 2022 Anabella Colmenares null, [facility] 4 10:31:03 Strain of hamstring tendon 016592614 Active 2022 Anabella Colmenares null, [facility] 4 10:31:23 Pain of right knee joint 3244619251471 00 Active 2022 Anabella Colmenares null, [facility] 4 10:31:24 Chronic insomnia 837608763 Active 2022 Anabella Colmenares null, [facility] 4 10:31:03 Derangemen t of right knee 1240004597652 9109 Active 2022 [facility] 4 10:31:03 Diverticul itis of sigmoid colon 984225832 Active 2022 Anabella Colmenares null, [facility] 4 10:31:03 Tear of meniscus of knee 132625830 Active 2022 [facility] 4 10:31:23 Pain in right hip joint 8377503946440 02 Active 2022 [facility] 4 10:31:23 Pain in right lower limb 166351013 Active 2022 [facility] 4 10:31:23 Gastroesop hageal reflux disease 913040672 Active 2023 Anabella Colmenares null, [facility] 5 08:39:09 Infection of tooth 670960226 Active 2024 Anabella Colmenares null, [facility] 5 08:39:13 Atypical chest pain 986425015 Active 2024 Anabella Colmenares null, [facility] 5 08:39:09 Anemia 986488197 Active 2024 [facility] 08:39:09 Notes:Some problems listed i n Documents: #[id number], #[id number], #[id number] could not be added to this patient's chart. Please review these documents and add these problems to the patient's chart manually as needed. Problem Notes None recorded. Procedures Surgical History Date Name Laterality Status Provider Name and Address Organization Details Recorded Time 023 Corticosteroid Injection completed Hugh Chavez DO [address] [place] [address], [phone], [facility] 09/12/2023 13:43:12 023 Corticosteroid Injection completed Hugh Chavez DO [address] [place] [address], [phone], [facility] 07/11/2023 15:46:05 023 Cerumen Removal completed CAROLE ARREGUIN [address] [place] [address], [address], [facility] 01/31/2023 09:53:04 022 Cerumen Removal completed CAROLE ARREGUIN [address] [place] [address], [address], [facility] 08/02/2022 10:58:32 022 Cerumen Removal completed CAROLE ARREGUIN [address] [place] [address], [address], [facility] 07/19/2022 10:37:40 022 Cerumen Removal completed CAROLE ARREGUIN [address] [place] [address], [address], [facility] 07/11/2022 11:30:14 Imaging Results None recorded. Procedure Notes None recorded. Medical Equipment None Reported. Allergies Allergen ID Allergen Name Allergen Category Reaction Reaction Severity Criticality Documentation Date Start Date Code Code System Note Provider Name and Address Organization Details Recorded Time 241 penicilli n V Not available Not available Not available Not available 01/01/2018 7984 [facility] 11:30:51 Medications Name Sig Start Date [...] Updated DateTime 4 168.28 cm 32 kg/m2 43927.7 6 g 64 /min 92 % 92 % 154 mm[Hg] 80 mm[Hg] Hugh Chavez, DO [address] [place], [address] [place] [address] [facility] 4 13:45:35 Date Recorded Body height Body mass index (BMI) Body weight Heart rate Oxygen saturation Oxygen saturation in Arterial blood by Pulse oximetry Systolic blood pressure Diastolic blood pressure Provider Name and Address Organization Details Last Updated DateTime 4 168.28 cm 31.7 kg/m2 58872.2 9 g 73 /min 95 % 95 % 128 mm[Hg] 68 mm[Hg] Jackie Jackson [facility] 4 15:11:51 Date Recorded Body height Body mass index (BMI) Body weight Heart rate Oxygen saturation Oxygen saturation in Arterial blood by Pulse oximetry Systolic blood pressure Diastolic blood pressure Provider Name and Address Organization Details Last Updated DateTime 4 168.28 cm 31.7 kg/m2 83106.2 9 g 58 /min 98 % 98 % 148 mm[Hg] 86 mm[Hg] Miles Estes [facility] 4 11:36:49 Date Recorded Body height Body mass index (BMI) Body weight Heart rate Oxygen saturation Oxygen saturation in Arterial blood by Pulse oximetry Systolic blood pressure Diastolic blood pressure Provider Name and Address Organization Details Last Updated DateTime 5 170.18 cm 31 kg/m2 77937.2 9 g 69 /min 96 % 96 % 150 mm[Hg] 78 mm[Hg] Miles Estes [facility] 5 14:42:52 Date Recorded Body height Heart rate Oxygen saturation Oxygen saturation in Arterial blood by Pulse oximetry Systolic blood pressure Diastolic blood pressure Provider Name and Address Organization Details Last Updated DateTime 5 170.18 cm 66 /min 97 % 97 % 194 mm[Hg] 82 mm[Hg] Anabella Colmenares [facility] 5 10:24:17 Social History Question Answer Notes LastModified by Organizat ion Details LastModified Time Tobacco Smoking Status Never Smoker Karlene cano [facility] 03/12/2018 17:04:43 What Was The Date Of Your Most Recent Tobacco Screening? 01/10/2025 Information not available 01/10/2025 Do You Or Have You Ever Used Any Other Forms Of Tobacco Or Nicotine? No [email or web address] Information not available 05/24/2023 Sex: Unknown Functional Status None recorded. Mental Status None recorded. Family History Nothing Reported. Medical History No medical history recorded. Immunizations Vaccine Type Date Status Note Provider Nam e and Address Organization Details Recorded Time pneumococcal polysaccharide PPV23 6 completed Not Available [facility] 11/16/2023 09:43:34 Influenza, split virus, quadrivalent, preservative 8 completed Not Available [facility] 11/16/2023 09:43:34 Influenza, split virus, quadrivalent, preservative 1 completed Not Available [facility] 11/16/2023 09:43:34 COVID-19, mRNA, LNP-S, PF, 30 mcg/0.3 mL dose 1 completed Not Available [facility] 11/16/2023 09:43:34 COVID-19, mRNA, LNP-S, PF, 30 mcg/0.3 mL dose 2 completed Not Available [facility] 11/16/2023 09:43:34 influenza, unspecified formulation 2 completed Not Available [facility] 11/16/2023 09:43:34 zoster live 8 completed Not Available [facility] 11/16/2023 09:43:34 zoster live 8 completed Not Available [facility] 11/16/2023 09:43:34 Influenza, split virus, quadrivalent, preservative 9 completed Not Available [facility] 11/16/2023 09:43:34 COVID-19, mRNA, LNP-S, PF, 30 mcg/0.3 mL dose 1 completed Not Available [facility] 11/16/2023 09:43:34 COVID-19, mRNA, LNP-S, PF, 30 mcg/0.3 mL dose 1 completed Not Available [facility] 11/16/2023 09:43:34 Influenza, split virus, quadrivalent, preservative 0 completed Not Available [facility] 11/16/2023 09:43:34 Past Encounters Encounter ID Performer Location Encounter Start Date Encounter Closed Date Diagnosis/Indication Diagnosis SNOMED-CT Code Diagnosis ICD10 Code Diagnosis Note [id number] Hugh Chavez DO [facility] [address] [facility] [address],[place] [address] 03/12/2018 16:15:48 03/12/2018 17:25:35 Type 2 diabetes mellitus 56513205 E11.9 Essential hypertension 92603041 I10 Paroxysmal supraventricular tachycardia 60359976 I47.1 Change in skin lesion 39 6021798 L98.9 [id number] January SANDRA Hebert [facility] [address],[place] [address] 06/15/2018 15:57:55 06/15/2018 17:00:31 Type 2 diabetes mellitus 21832836 E11.9 will add metformin as he's never been on this medication before recommend continuing to check bs every 4-6 hours per day to ensure no hypoglycem ia will also gradually increase humalog to 20 units pending his blood sugar will schedule eye exam Essential hypertension 96969849 I10 well controlled Hypercholesterolemia 136 58276 E78.00 will do fasting labs this time Acute low back pain 2788 62896 M54.5 Paroxysmal supraventricular tachycardia 20405807 I47.1 rate controlled on metoprolol [id number] Hugh Chavez DO [facility] [address], [place] [address] 09/14/2018 15:56:40 09/14/2018 16:34:59 Adult health examination 412585408 Z00.00 Screening for cardiovascular system disease 945180197 Z13.6 needds cholkester ol Type 2 luiza mireya mellitus 55413184 E11.9 will add metformin as he's never been on this medication before recommend continuing to check bs every 4-6 hours per day to ensure no hypoglycem ia will also gradually increase humalog to 20 units pending his blood sugar will schedule eye exam Essential hypertension 58537604 I10 well controlled and is doing ok will keep meds as they are Hepatitis C screening 41 9495469 Z11.59 needs screening Coronary atherosclerosis 133462154 I25.10 [id number] Hugh Chavez DO [facility] [address], [place] [address] [facility] [address] 01/29/2019 15:47:47 01/29/2019 16:55:01 Type 2 diabetes mellitus 37424024 E11.9 has stopped his 50 u lantus and will now check his a1c this week Essential hypertension 71919228 I10 well controlled and is doing ok will keep meds as they are [id number] Hugh Chavez DO [facility] [address] [facility], [place] [address] 05/17/2019 15:55:24 05/17/2019 16:52:34 Hypercholesterolemia 04593822 E78.00 will do fasting labs this time Type 2 luiza mireya mellitus 53459426 E11.9 has stopped his 50 u lantus and will now check his a1c this week his a1c at 7.0 and we will keep him off and he will cont humalog on a sliding scale basis Essential hypertension 25346055 I10 well controlled and is doing ok will keep meds as they are Paroxysmal supraventricular tachycardia 96476286 I47.1 rate controlled on metoprolol Acute non- ST segment elevation myocardial infarction 331634554 I21.4 quiet and doing ok no major issues [id number] Hugh Chavez DO [facility] [address] [facility], [place] [address] 09/20/2019 15:50:23 09/20/2019 16:38:03 Type 2 diabetes mellitus 10707580 E11.9 only using the humalog and will his a1c at 6.5 and we will keep him off and he will cont humalog on a sliding scale basis Essential hypertension 66882035 I10 well controlled and is doing ok will keep meds as they are [id number] Hugh Chavez, [facility] [address] [facility] [address] [address] 11/29/2019 15:47:21 11/29/2019 16:37:31 Type 2 diabetes mellitus 22509423 E11.9 now on trulicity with metformin and is doing ok will be following w dr taylor and will have blood work then not taking humalog a1c is from dr taylor Essential hypertension 41084045 I10 well controlled and is doing ok will keep meds as they are Acute non- ST segment elevation myocardial infarction 185906694 I21.4 quiet and doing ok no major issues Paroxysmal supraventricular tachycardia 35455333 I47.1 rate controlled on metoprolol and no further issues [id number] Hugh Chavez, [facility] [address] [facility] [address] [address] 04/03/2020 11:29:07 04/03/2020 12:17:56 Coronary atherosclerosis 380310956 I25.10 stable no cp asymptomat ic and feeling great no sob Essential hypertension 01509957 I10 well controlled and is doing ok will keep meds as they are Hypercholesterolemia 136 67380 E78.00 will do fasting labs this time Paroxysmal supraventricular tachycardia 60267384 I47.1 rate controlled on metoprolol and no further issues Type 2 luiza betes mellitus 17974662 E11.9 now on trulicity with metformin and is doing ok will be following w dr taylor and will have blood work then also is now on Lantus 20 u but does not feel is doing well not taking humalog a1c is from dr taylor [id number] CAROLE ARREGUIN [facility] [address] [facility] [address],[place] [address] 05/11/2020 13:27:18 05/11/2020 14:28:12 Syncope 712781248 R55 the patient is doing much better today feels better, no dizziness, wooziness or lightheadn ess Heat exhaustion 67730983 T67.5XXD as above resolved Contusion of foot 549591 04 S90.31XA will keep an eye on the foot and see if the color discolorat ion happens again will f/u with US of the vessels if needed told daughter to monitor it only gets bruising of the foot Type 2 luiza betes mellitus 50576452 E11.9 would like another A1c done as the one at specialist did not do an actual a1c measure but measured it from BS counts per patient and meter results which he does not think are reliable enough to have an accurate measuremen t [id number] Hugh Chavez [facility] [address] [place] [address],[place] [address] 08/03/2020 10:39:19 08/03/2020 12:30:22 Essential hypertension 25061215 I10 well controlled and is doing ok will keep meds as they are Type 2 luiza betes mellitus 33493580 E11.9 now on trulicity with metformin and is doing ok will be following w dr taylor and will have blood work then also is now on Lantus 20 u but does not feel is doing well last a1c is 8.0 in april but we zahra check today Paroxysmal supraventricular tachycardia 96777828 I47.1 rate controlled on metoprolol and no further issues Coronary atherosclerosis 866669816 I25.10 stable no cp asymptomat ic and feeling great no sob Influenza- like illness 20222606 B34.9 feels he had covid in november Hugh Chavez DO [facility] [address] [place] [address], [place] [address] 01/18/2021 14:07:26 01/18/2021 14:55:49 Hypercholesterolemia 76758397 E78.00 will do fasting labs this time Type 2 luiza betes mellitus 35971145 E11.9 now on trulicity with metformin and [...] he is still at 8.0 Essential hypertension 31066278 I10 well controlled and is doing ok will keep meds as they are [id number] Hugh Chavez DO [facility] [address] [facility], [place] [address] 04/26/2021 13:41:37 04/26/2021 14:10:23 Type 2 diabetes mellitus 74335426 E11.9 now on trulicity with metformin and [...] he is still at 8.0 Essential hypertension 49464101 I10 well controlled and is doing ok will keep meds as they are Acute non- ST segment elevation myocardial infarction 691833057 I21.4 quiet and doing ok no major issues Paroxysmal supraventricular tachycardia 80585376 I47.1 rate controlled on metoprolol and no further issues [id number] Hugh Chavez, [facility] [address],[place] [address] 08/24/2021 13:20:08 08/24/2021 15:11:48 Type 2 diabetes mellitus 22234103 E11.9 now on trulicity with metformin and is doing ok will be following w dr taylor and will have blood work then also is now on Lantus 30 unow he is at 8.5 last a1c is 7.2 in march Essential hypertension 35201409 I10 well controlled and is doing ok will keep meds as they are Hypercholesterolemia 136 47654 E78.00 will do fasting labs this time [id number] Hugh Chavez, [facility] [address],[employer] [facility] [place] [address] 01/19/2022 10:38:41 01/21/2022 11:55:29 Type 2 diabetes mellitus 13844265 E11.9 will try to get back on trulicity with metformin and is doing ok will be following w dr taylor and will have blood work then also is now on Lantus 30 unow he is at 8.4 last a1c is 8.5 in jul Acute non- ST segment elevation myocardial infarction 282038550 I21.4 quiet and doing ok no major issues Paroxysmal supraventricular tachycardia 83067101 I47.1 rate controlled on metoprolol and no further issues Essential hypertension 31671063 I10 well controlled and is doing ok will keep meds as they are [id number] Hugh Cahvez DO [facility] [address] [facility] [address] [address] 05/30/2022 12:10:51 05/30/2022 13:06:36 Type 2 diabetes mellitus 22897884 E11.9 will try to get back on trulicity with metformin and is doing ok will be following w dr taylor and will have blood work then also is now on Lantus 30 unow 7.5 and was prior at 8.4 last a1c is 8.5 in jul Essential hypertension 58086761 I10 well controlled and is doing ok will keep meds as they are Hypercholesterolemia 136 05393 E78.00 will do fasting labs this time Coronary atherosclerosis 720067716 I25.10 stable no cp asymptomat ic and feeling [place] no sob [id number] CAROLE ARREGUIN [facility] [address] [facility] [address] [address] 07/11/2022 10:41:53 07/11/2022 11:34:08 Impacted cerumen 60092063 H61.23 fu in a week [id number] CAROLE ARREGUIN [facility] [address] [facility] [address] [address] 07/19/2022 10:08:05 07/19/2022 10:32:58 Impacted cerumen of bilateral ears [id number] 701584 H61.23 fu in a few weeks for retry [id number] CAROLE ARREGUIN [facility] [address] [facility] [address],[place] [address] 08/02/2022 10:22:13 08/02/2022 11:03:51 Impacted cerumen 44700164 H61.23 resolved [id number] Hugh Chavez DO [facility] [address] [facility] [address],[place] [address] 11/18/2022 09:47:37 11/18/2022 12:08:32 Type 2 diabetes mellitus 89617088 E11.9 will try to get back on trulicity with metformin and is doing ok will be following w dr taylor and will have blood work then also is now on Lantus 30 unow 8.2 was 7.5 and was prior at 8.4 last a1c is 8.5 in oct Essential hypertension 82742734 I10 well controlled and is doing ok will keep meds as they are Acute non- ST segment elevation myocardial infarction 221170999 I21.4 quiet and doing ok no major issues Paroxysmal supraventricular tachycardia 51005303 I47.1 rate controlled on metoprolol and no further issues Hepatitis C screening 41 1798013 Z11.59 needs screening Screening for malignant neoplasm of colon 379196274 Z12.11 Insomnia 299221088 G47.0 0 [id number] CAROLE ARREGUIN [facility] [address] [facility],[place] [address] 01/31/2023 09:23:48 01/31/2023 11:17:11 Essential hypertension 35104332 I10 BP elevated; stable at home per patient Hypercholesterolemia 136 53581 E78.01 needs recheck; has regular fu with ALEXANDER scheduled Impacted monse 3128769 6 H61.23 kin herrera to set up 6 mos fu for re-evaluat ion given the frequency of how he builds up wax Type 2 luiza betes mellitus 44761271 E11.9 needs BW prior to appt with ALEXANDER [id number] Hugh Chavez DO [facility] [address] [facility],[place] [address] 02/03/2023 10:29:58 02/03/2023 11:32:42 Type 2 diabetes mellitus 53099759 E11.9 will try to get back on trulicity with metformin and is doing ok will be following w dr taylor and will have blood work then also is now on Lantus 30 unow 8.2 was 7.5 and was prior at 8.4 last a1c is 8.5 in oct Essential hypertension 44665947 I10 well controlled and is doing ok will keep meds as they are Pain in le ft lower limb 763622352 M79.605 wonderi if this is a knee strain aof joint as well as hamstring Coronary atherosclerosis 405397716 I25.10 stable no cp asymptomat ic and feeling great no sob Strain of hamstring tendon 262484403 S76.311A will put ice for days when he is pushing it outside and at workheat if an at home day Pain in ri ght lower limb 562996168 M79.604 [id number] Hugh Chavez [facility] [address] [facility] [address],[place] [address] 02/14/2023 14:41:32 02/14/2023 15:43:10 Pain of right knee joint 6407559123 13730 M25.561 try to treat conserv (xray was excellent) presume cartilage irritation if he suddenly develops issues will call and MRI will be ordered pt understand s and agrees. Chronic insomnia 5761560 04 F51.04 pt requesting refill of zolpidem [...] stop and he agrees and understand s. [id number] Hugh Chavez [facility] [address] [facility],[place] [address] 05/24/2023 13:24:56 05/24/2023 14:18:31 Hyperkalemia 58395137 E87.5 non issue was a lab issue Essential hypertension 67829444 I10 well controlled and is doing ok will keep meds as they are Type 2 luiza betes mellitus 35319515 E11.9 a1c is down to 8.1 from 8.5 work then also is nowincreas ing Lantus to 35unow 8.2 was 7.5 and was prior at 8.4 last a1c is 8.5 in jul t of right knee 3447009629 0551002 M23.91 has evid of meniscal damage will need mri [id number] Hugh Chavez [facility] [address] [facility] [place] [address] 06/20/2023 11:07:44 06/20/2023 11:38:53 Diverticulitis of sigmoid colon 308607055 K57.32 [id number] Hugh Chavez DO [facility] [address] [facility] [address], [address] [facility] [place] [address] 06/23/2023 09:50:42 06/26/2023 11:46:57 Essential hypertension 64793058 I10 well controlled and is doing ok will keep meds as they are Type 2 luiza betes mellitus 73810201 E11.9 a1c is down to 8.1 from 8.5 work then also is now tolerating the increse of Lantus to 35unow 8.2 was 7.5 and was prior at 8.4 last a1c is 8.5 in jul Insomnia 480799370 G47.0 0 will use sporadical ly Paroxysmal supraventricular tachycardia 54505601 I47.1 rate controlled on metoprolol and no further issues [id number] Hugh Chavez [facility] [address] [facility], [place] [address] 07/11/2023 15:13:29 07/11/2023 16:19:58 Pain of right knee joint 1870545981 10681 M25.561 cortisone inj well deanne try to treat conserv (xray was excellent) presume cartilage irritation if he suddenly develops issues will call and MRI will be ordered pt understand s and agrees. [id number] Hugh Chavez [facility] [address] [facility], [facility] [address] 08/25/2023 09:53:34 08/25/2023 12:17:52 Essential hypertension 20288763 I10 well controlled and is doing ok will keep meds as they are Hypercholesterolemia 136 74447 E78.01 will do fasting labs this time Type 2 luiza betes mellitus 16955997 E11.9 a1c is pending as he has not done yet this time down to 8.1 from 8.5 work then also is now tolerating the increse of Lantus to 35unow 8.2 was 7.5 and was prior at 8.4 last a1c is 8.5 in jul Coronary atherosclerosis 388260777 I25.10 stable no cp asymptomat ic and feeling great no sob Pain in ri ght hip joint 5647965072 50567 M25.551 seem all muscular we will give him some flexeril [id number] Hugh Chavez, [facility] [address] [facility] [address], [address] [facility] [address] 09/12/2023 13:25:49 09/12/2023 14:08:12 Tear of meniscus of knee 484534524 S83.206A deanne kylie inj [id number] Hugh HillmanDoris Chavez [facility] [address] [facility],[place] [address] 10/03/2023 14:09:41 10/04/2023 08:13:48 Type 2 diabetes mellitus 32398978 E11.9 a1c is pending as he has not done yet this time down to 8.1 from 8.5 work then also is now tolerating the increse of Lantus to 35unow 8.2 was 7.5 and was prior at 8.4 last a1c is 8.5 in jul Essential hypertension 67356045 I10 increase metoprolol to two tab daily [id number] Hugh Chavez [facility] [address] [facility],[place] [address] 01/02/2024 13:34:29 01/02/2024 14:21:02 Essential hypertension 78375728 I10 increase metoprolol to two tab daily and bp is down to from 160's Type 2 luiza betes mellitus 24266643 E11.9 a1c is 7.9!!! down to 8.1 from 8.5 work then also is now tolerating the increse of Lantus to 35unow 8.2 was 7.5 and was prior at 8.4 last a1c is 8.5 in jul Coronary atherosclerosis 708680504 I25.10 stable no cp asymptomat ic and feeling great no sob [id number] Hugh Margo Chavez [facility] [address] [facility],[place] [address] 05/15/2024 15:07:13 05/15/2024 15:43:09 Adult health examination 874745432 Z00.00 doing ok exept for the sugar he needs to buckle down on his diet Screening for cardiovascular system disease 276206737 Z13.6 needs cholestero l Depression screening 171 727156 Z13.31 neg Type 2 luiza betes mellitus 15022876 E11.9 a1c is now up to 8.9 and was 7.9!!! down to 8.1 from 8.5 work then also is now tolerating the increse of Lantus to 35unow 8.2 was 7.5 and was prior at 8.4 last a1c is 8.5 in jul Essential hypertension 83412006 I10 increase metoprolol to two tab daily and bp is down to from 160's Paroxysmal supraventricular tachycardia 54189703 I47.10 here for rechk and is doing well no palpitatio ns Coronary atherosclerosis 694080620 I25.10 stable no cp asymptomat ic and feeling great no sob Gastroesop hageal reflux disease 985353571 K21.9 [id number] Hugh Chavez DO [facility] [address] [place] [address] 09/02/2024 11:21:41 09/02/2024 11:58:30 Type 2 diabetes mellitus 17596558 E11.9 a1c is pending now up to 8.9 and was 7.9!!! down to 8.1 from 8.5 work then also is now tolerating the increse of Lantus to 35unow 8.2 was 7.5 and was prior at 8.4 last a1c is 8.5 in jul Insomnia 053917999 G47.0 0 will use sporadical ly [id number] Lary Wang [facility] [address] [place] [address] 12/31/2024 14:02:27 12/31/2024 16:17:48 Infection of tooth 625853648 K04.7 Atypical chest pain 1025 29973 R07.89 will set up with US echo, exercise stress, EKG STAT increase the aspirin to 325 mg, add additional BP medcontinu e on metoprolol and lisinopril [id number] Hugh Chavez DO [facility] [address] [facility],[place] [address] 01/10/2025 10:18:21 01/10/2025 11:07:20 Atypical chest pain 850260815 R07.89 has ETT and echo ordered also has cardiol consult ordered Anemia 535927410 D64.9 not seen before will order follow up lab Coronary atherosclerosis 730842489 I25.10 stable no cp asymptomat ic and feeling great no sob Essential hypertension 77937823 I10 increase metoprolol to two tab daily and bp is down to from 160'swill increase the hctz to 25 Paroxysmal supraventricular tachycardia 83291570 I47.10 here for rechk and is doing well no palpitatio ns Type 2 luiza betes mellitus 03517819 E11.9 a1c is pending now up to [...] Member ID Goode Member ID Guarantor Name 01/02/2024 2 [employer] Price Aly [id number] Price Aly 01/02/2024 1 [place] [employer] Price Aly [id number] Price Aly 05/15/2024 2 [employer] Price lAy [id number] Price Aly 05/15/2024 1 [employer] [employer] Price Aly [id number] Price Aly 09/02/2024 2 [employer] Price Aly [id number] Price Aly 09/02/2024 1 [place] [employer] Price Aly [id number] Price Aly 12/31/2024 1 [place] [employer] Price Aly [id number] Price Aly 12/31/2024 2 [employer] (MED[employer]ARE SU[employer]MENT) Price Aly [id number] Price Aly 01/10/2025 1 [place] Price Aly [id number] Price Aly 01/10/2025 2 [employer] (MEDICARE SUPP[employer]MENT) Price Aly [id number] Price Aly Notes Date Note Type Note Provider Name and Address Organization Details Recorded Time 4 text/htm l Care Management - DiabetesReported [...] but feels goodhas dropped his bp Hugh Chavez, DO [address] [place], [address], [facility] 01/02/2024 14:17:35 4 text/htm l [...] as of late Hugh Chavez, DO [address] [facility], [place], [address], [facility] [place] 05/15/2024 15:40:52 4 text/htm l [...] here for dm and bp doing Hugh Chavez, [address] [place], [address], [facility] [place] 09/02/2024 11:57:10 5 text/htm l [...] 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
[2025-01-10 13:58] LABS: Estimated Average Glucose 209 mg/dL; Hemoglobin A1c % 8.9 % (<6.0)
[2025-01-10 14:26] LABS: Vitamin B12 587 pg/mL (200-900)
[2025-01-10 14:38] LABS: Iron 77 mcg/dL (45-160); Percent Iron Saturation 27 % (15-50); Total Iron Binding Capacity 282 mcg/dL (228-428); Unsaturated Iron Binding 205 ug/dL
[2025-01-10 14:55] LABS: Ferritin 92 ng/mL (20-250)
== END 2025-01-10 11:01 | disposition home or self-care (01) ==
LOC: HO.MANLDS 11:00
PROVIDERS: Visit Provider Internal Medicine
DX: D64.9 Anemia, unspecified (principal); E11.9 Type 2 diabetes mellitus without complications
CPT/HCPCS: 36415; 82607; 82728; 83036; 83540

== ENCOUNTER 2025-03-14 10:50 | Outpatient (REF) | payer MEDICARE, OTHER, SELFPAY ==
[2025-03-14 13:24] LABS: Estimated Average Glucose 171 mg/dL; Hemoglobin A1C 174.2676 umol/L; Hemoglobin A1c % 7.6 % (<6.0)
== END 2025-03-14 10:51 | disposition home or self-care (01) ==
LOC: HO.MANLDS 10:50
PROVIDERS: Visit Provider Internal Medicine
DX: E11.9 Type 2 diabetes mellitus without complications (principal)
CPT/HCPCS: 36415; 83036

== ENCOUNTER 2025-06-18 11:35 | Outpatient (REF) | payer MEDICARE, OTHER, SELFPAY ==
--- OUTSIDE RECORDS SUMMARY | 2025-06-18 12:53 | XMS_ITS | Clinical Summary ---
Author Organization [facility] Address [address] [facility] [address] [place] [phone] Phone Care Team Providers Care Photographic Intelligence Officer Name Role Phone Hugh Rodriguez Primary Care Provider [phone] Allergies Active Allergy Reactions Criticality Noted Date Comments Penicillins 06/25/2019 Medications metoprolol succinate (TOPROL-XL) 50 MG 24 hr tablet Take 100 mg by mouth daily. Active atorvastatin (LIPITOR) 80 MG tablet Take 80 mg by mouth daily. Active aspirin 81 MG EC tablet Take 81 mg by mouth daily. Active zolpidem (AMBIEN) 5 MG tablet zolpidem 5 mg tablet TAKE 1 TABLET BY MOUTH EVERY DAY AT BEDTIME NEEDED Active insulin glargine (LANTUS, BASAGLAR) 100 unit/mL (3 mL) InPn injection penIndications:Type 2 diabetes mellitus with both eyes affected by mild nonproliferative retinopathy without macular edema, with long-term current use of insulin Inject 20 Units under the skin nightly at bedtime. 2 pen 11 020 Active Additional Information Patient taking differently: 30 UnitsSubcutaneous Nightly, Reported on 04/29/2025 lisinopril (PRINIVIL,ZESTRIL) 40 MG tabletIndications:E ssential hypertension Take 1 tablet (40 mg total) by mouth daily. 90 tablet 3 020 Active dulaglutide (TRULICITY) 1.5 mg/0.5 mL subcutaneous injectionIndication s:Type 2 diabetes mellitus with both eyes affected by mild nonproliferative retinopathy without macular edema, with long-term current use of insulin Inject 0.5 mL (1.5 mg total) under the skin every 7 days. 12 Syringe 3 Active Additional Information Patient not taking.Reported on 04/29/2025 FREESTYLE FREEDOM LITE meter kitIndications:Type 2 diabetes mellitus with both eyes affected by mild nonproliferative retinopathy without macular edema, with long-term current use of insulin Use as instructed 1 each Active FREESTYLE 28 gauge lancetsIndications: Type 2 diabetes mellitus with both eyes affected by mild nonproliferative retinopathy without macular edema, with long-term current use of insulin 1 each by Miscellaneous route 3 (three) times a day before meals. 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 Active HUMALOG KWIKPEN INSULIN 100 unit/mL kwikpen INJECT 30 UNITS SUBCUTANEOUSLY DAILY EVERY 6 HOURS IF NEEDED 023 Active omeprazole (PRILOSEC) 20 MG capsule Take 1 capsule by mouth every morning. 025 Active spironolactone (ALDACTONE) 25 MG tablet Take 1 tablet (25 mg total) by mouth daily. 90 tablet 3 025 Active amLODIPine (NORVASC) 5 MG tabletIndications:E ssential hypertension Take 1 tablet (5 mg total) by mouth daily. 90 tablet 1 025 Active amLODIPine (NORVASC) 5 MG tabletIndications:E ssential hypertension Take 1 tablet (5 mg total) by mouth daily. 90 tablet 1 025 2024 Disconti nued(Reo rder) Active Problems Problem Noted Date Diagnosed Date Transient cerebral ischemia 04/29/2025 Paroxysmal supraventricular tachycardia 06/25/20 19 Assessment & Plan (04/29/2025 1:07 PM EDT): I am going to order a 7-day MCT monitor to evaluate for atrial fibrillation Assessment & Plan (06/23/2020 5:20 PM EDT): Has been several years. Doing well. Next visit in about 6 months will be with 1 of my EP colleagues in my absence. Assessment & Plan (12/25/2019 4:29 PM EST): No recent episodes. Tolerating metoprolol. Assessment & Plan (06/25/2019 4:44 PM EDT): No episodes in over 2 years. I described the pathophysiology and available treatments both for the acute issue and if recurrent, an ablation. I did demonstrate a Valsalva maneuver and described the diving reflex. 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 Unfortunately he thinks that he is having abdominal aches due to the use of Metformin but I think it could also be due to Trulicity. He wants to stop Metformin but I suggested decreasing it to 1 tablet twice a day and see if the symptoms improve but if he discontinues I will decrease his Metformin would like to add another agent so I am going to add Invokana 100 mg. The problem is the expense and he is not certain that he will be able to afford it. He is going to continue Actos 45 mg daily and Trulicity. Will return for follow-up in 3 months Assessment & Plan (08/18/2020 10:28 AM EDT): Fair control his hemoglobin A1c is now 7.5% he has elevated fasting glucose levels and some elevated evening glucose levels otherwise he has made a good improvement since his last visit. At this point I will increase Actos from 30 to 45 mg he will continue metformin and Trulicity and he is off Lantus because of the expense. He informs me he is in the donut hole. He is also not using freestyle heena because is not covered by Medicare since he is not on multiple daily injections of insulin which requires monitoring glucose up to 4 times a day. Will follow in 6 weeks. Assessment & Plan (05/28/2020 12:27 PM EDT): Controlled average glucose is about the same as last time at 203 mg/dL but he has not been using Lantus as prescribed for multiple reasons expense, leery of becoming hypoglycemic. Actos is a lot cheaper and I am going to increase it from 15 to 30 mg since he is tolerating the medication he will continue metformin, Trulicity and I asked him to decrease Lantus to 10 units since he is afraid of hypoglycemia. My hope is to increase Actos up to 45 mg and see how he does with his oral medications and Trulicity. If his glucose levels are still high then he is currently some amount of Lantus. Assessment & Plan (04/16/2020 11:54 AM EDT): Uncontrolled hemoglobin A1c is 7.9% he should continue metformin, Lantus 20 units, Trulicity 1.5 weekly will add Actos 15 mg. If he tolerates Actos will increase the dose eventually. In the meantime he is going to inquire with his insurance company if there is a different form of basal insulin that he can use I gave him all the names of the medications he could possibly use and the same is true for the GLP-1 agonist. He will follow in 6 weeks time. Assessment & Plan (01/29/2020 11:07 AM EDT): Uncontrolled his hemoglobin A1c has increased to 7.7%. His regimen is much better in terms of doing injections he only has to do Trulicity once a week and he is on metformin extended release 500 mg 2 tablets twice a day. But he has hyperglycemia throughout the day so have added Lantus 20 units daily. I also discussed with him using SGLT2 inhibitor such as Invokana but I do not have his renal function and I think it is unsafe to use this medication without first seeing what the kidney function is. I did ask him if he could have this forwarded to me. Because we do have to monitor the renal function since he is on metformin. The other problem with using an SGLT2 inhibitors that he will have to drink a lot of water and he if he is not prepared to do this he may have dehydration and acute renal insufficiency. So this point will proceed with Lantus at 20 units and if he finds that is too much insulin because he is having low glucose he can just decrease the dose. We will give him a follow-up appointment in 3 months time. Assessment & Plan (11/13/2019 5:19 PM EST): Uncontrolled. The patient's hemoglobin A1c was 6. 9%. The patient has had hypoglycemia and wakes up with hyperglycemia. So the question is why is he waking up with high glucose he tends to have pretzels and popcorn's at night which may result in elevated glucose levels and does not have the basal insulin so this may be the reason. The other possibility is that he has rebound hyperglycemia this is usually preceded by hypoglycemic glucose in the middle of the night. I asked him to just stop taking Humalog ministration he is not following a correction scale it is completely wrong. If anything he should be on a basal insulin. However I wanted to initially just start him back on Lantus but 1 of the issues is that he is hungry all the time and he has very poor diet he has very high carbohydrate meals. This is what he is used to he is never seen a clinical educator and maybe he will benefit from seeing a clinical educator/dietitian. At this point he is not really interested in following with a CDE. I will give him a booklet on food and see if that will help him. I have decided that he probably benefit best from a GLP-1 agonist he has no history of pancreatitis or medullary thyroid carcinoma so it should be safe to use. This medication is associated with nausea, vomiting, diarrhea, constipation. The only way to find out if he is going to tolerate is to try it. I have asked him when he uses this medication not to use carbonated drinks like soda and not to have high fatty foods because it can upset his stomach. He will continue with metformin as he is currently doing. He states that sometimes he feels that he has loose stools in the morning. If he cannot tolerate metformin we can switch it to metformin extended release in the future. For now I just want him on metformin and Trulicity 0.75 mg weekly. I want to see if he tolerates this medication. I have given him 2 samples of the 0.75 mg weekly dose but I will prescribe Trulicity 1.5 mg. I will give him a co-pay card since he has commercial insurance he should not pay more than $25 a month with the co-pay card assuming their insurance covers it. We will give him a follow-up appointment in 4 to 6 weeks. He needs to bring in his meter on the follow-up visit he needs to resist using the Humalog if he has any problems he should call me. Essential hypertension 06/25/2019 Assessment & Plan (04/29/2025 1:08 PM EDT): Not adequately controlled I have added spironolactone in addition to his lisinopril obviously we will need to keep an eye on his potassium I have ordered a basic metabolic panel to be done sometime in the next month Assessment & Plan (06/23/2020 5:18 PM EDT): Borderline control. I have told him that it is important that we intensify therapy in diabetics both in terms of blood pressure and lipids and I told him that his systolic should be consistently 130 and a minimum and ideally at 120. He will begin to monitor more frequently and call if he does not reach this criteria. Assessment & Plan (12/25/2019 4:29 PM EST): Mildly elevated today. I have asked him to begin to monitor this at home at least to 2 or 3 times a week before he goes to bed. I have asked him to let us know if his pressures consistently over 140. Assessment & Plan (06/25/2019 4:45 PM EDT): Markedly elevated today. I took the liberty of increasing his lisinopril to 40 mg. I have asked him to be sure that his home device is calibrated and to begin to measure blood pressures 3 or 4 times a week with most blood pressures before bed but at least one during the day at rest. I think our goal should be a systolic of 120. If needed I would add HCTZ at this juncture if it remains elevated. Pure hypercholesterolemia 06/25/2019 Assessment & Plan (06/23/2020 5:19 PM EDT): Herbal profile with an LDL in the 60s and HDL of 38. Triglycerides were 105. Creatinine is normal with a slightly elevated BUN of 25 and a potassium of 5.1. LFTs were fine Assessment & Plan (12/25/2019 4:30 PM EST): Remains on high-dose atorvastatin. He tells me labs were drawn but have yet to be forwarded. Assessment & Plan (06/25/2019 4:46 PM EDT): Agree with high-dose atorvastatin. I do not have any lipid profiles but I understand what is to be drawn shortly and I would asked that that be forwarded. Encounters Date Type Department Care Team Description 05/23/2025 [facility] [address], [address] [place] [address] Kay Vuong DNP 05/22/2025 [facility] [address], [address] [place], [place] [id number] Price Chavez DO 05/21/2025 1:51 PM EDT - 05/21/2025 5:08 PM EDT Emergency [facility] [address] [place] [address] Discharge Disposition: Home or Self Care 04/29/2025 12:45 PM EDT Office Visit [facility] [address], [address] [place] [address] Price Chavez DO Atypical chest pain (Primary Dx); Other specified transient cerebral ischemias; Paroxysmal supraventricular tachycardia; Essential hypertension; Type 2 diabetes mellitus with both eyes affected by mild nonproliferative retinopathy without macular edema, with long-term current use of insulin from Last 3 Months Immunizations Immunization Administration Dates Next Due Influenza High-Dose Quadrivalent Preservative Fr ee IM 08/28/2020 Influenza Quadrivalent w/ Preservative IM 2018,07/26/2018 Influenza Trivalent Adjuvanted Preservative free IM 06/21/2019 Zoster live 09/17/2018,05/22/2018 Family History Medical History Relation Comments Stroke Father Depression Mother Relation Status Comments Father Mother Social History Tobacco Use Types Packs/Day Years Used Date Smoking Tobacco: Never Smokeless Tobacco: Never Alcohol Use Standard Drinks/Week Comments Yes 2 (1 standard drink = 0.6 oz pur e alcohol) Education Answer Date Recorded Are you interested in more education? Not on puja e 02/24/2023 Are you concerned about learning? Not on file 02/24/2023 No 02/24/2023 No 02/24/2023 Food Answer Date Recorded Within the past 6 months we worried whether our food would run out before we got money to buy more. Never True 05/21/2025 Within the past 6 months the food we bought just didn't last and we didn't have enough money to get more. Never True Residential Stability Answer Date Recor ded What is your housing situation today? I have jenny sing 05/21/2025 How many times have you move d in the past 12 months? Zero (I did not move) 05/21/2025 Paying for Meds Answer Date Recorded Do you have trouble paying for medicines? No 05/21/2025 Paying Utility Bills Answer Date Record ed Do you have trouble paying your heating or elect ricity bill? No 05/21/2025 Transportation Answer Date Recorded Has the lack of transportati on kept you from medical appointments or from getting medications? No 05/21/2025 Digital Access Answer Date Recorded No 05/21/2025 Yes 05/21/2025 Do you have reliable internet access at home? Ye s 05/21/2025 Do you have a device (e.g., phone, tablet, computer) with a working camera? Yes 05/21/2025 Intimate Partner Violence Answer Date R ecorded Are you denied basic needs s uch as food, clothing, or medical care? No 05/21/2025 In the past 12 months have y ou been in a relationship with a person who hurts, threatens, or tries to control you? No 05/21/2025 Are you denied basic needs s uch as food, clothing, or medical care? No 05/21/2025 In the past 12 months have y ou been in a relationship with a person who hurts, threatens, or tries to control you? No 05/21/2025 Sex and Gender Information Value Date Recorded Sex Assigned at Male 05/27/2022 11:02 AM EDT Legal Sex Male 10:01 PM EDT Gender Identity Male 05/27/2022 11:02 AM EDT Sexual Orientation Straight 06/19/2023 1: 28 PM EDT Last Filed Vital Signs Vital Sign Reading Time Taken Comments Blood Pressure 153/78 05/21/2025 4:45 PM EDT Pulse 63 05/21/2025 4:45 PM EDT Temperature 36.1 C (97 F) 05/21/2025 4:45 PM EDT Respiratory Rate 16 05/21/2025 4:45 PM EDT Oxygen Saturation 98% 05/21/2025 4:45 PM EDT Inhaled Oxygen Concentration - - Weight 88.9 kg (196 lb) 05/21/2025 1:41 PM EDT Height 172.7 cm (5' 8 ) 05/21/2025 1:41 PM EDT Body Mass Index 29.8 05/21/2025 1:41 PM EDT Plan of Treatment Upcoming Encounters Date Type Department Care Team (Late st Contact Info) Description 04/29/2025 Procedure Pass Event Monitor [address] [place] [address] 07/07/2025 11:30 AM EDT Appointment Event Monitor [address] [place] [address] Price Chavez, DO [address] [facility] [address] [place] [phone] 08/05/2025 10:15 AM EDT Office Visit [facility] [address], [address] [place] [address] Price Chavez, DO [address] [facility] [address] [place] [id number] [email or web address] Health Maintenance Due Date Last Done Comments Adult Td,Tdap Booster 1951 DEPRESSION SCREENING 1963 HEPATITIS C SCREENING 1969 COLOGUARD 1996 COLONOSCOPY 1996 COLORECTAL CANCER SCREENING 1996 FIT TEST 1996 FOBT 1996 SIGMOIDOSCOPY 1996 VIRTUAL COLONOSCOPY 1996 RSV VACCINE (1 - Risk 60-74 years 1-dose series) 2011 PNEUMOCOCCAL VACCINES (50+ years) (2 of 2 - PCV) 07/23/2017 07/23/2016 ZOSTER VACCINES (2 of 3) 11/12/2018 09/17/2018, 04/30 DIABETIC EYE EXAM 06/25/2019 HEMOGLOBIN A1C 02/13/2023 11/15/2022, 10/30, 04/16/2020, Additional history exists COVID-19 VACCINE ( season) 2024 04/05/2022, 09/07/2021, 01/06/2021, Additional history exists BLOOD PRESSURE 10/30/2025 04/29/2025 CREATININE LEVEL 05/21/2026 05/21/2025, 03/2025, 11/15/2022, Additional history exists POTASSIUM LEVEL 05/21/2026 05/21/2025, 03/0 03/2025, 11/15/2022, Additional history exists SMOKING STATUS SCREENING (Once After 26 Yrs) Completed 05/21/2025 HEPATITIS A VACCINES Aged Out No long er eligible based on patient's age to complete this topic HIB VACCINES Aged Out No longer eligi ble based on patient's age to complete this topic MENINGOCOCCAL VACCINES (ACWY) Aged Out No longer eligible based on patient's age to complete this topic MENINGOCOCCAL VACCINES (B) Aged Out N o longer eligible based on patient's age to complete this topic Medical Devices Not on file Procedures Procedure Name Priority Date/Time Associated Diagnosis Comments NT-PROBNP STAT 05/21/2025 3:33 PM EDT TROPONIN STAT 05/21/2025 3:33 PM EDT MAGNESIUM STAT 05/21/2025 3:33 PM EDT LFTS (HEPATIC PANEL) STAT 05/21/2025 3:33 PM EDT BASIC METABOLIC PANEL STAT 05/21/2025 3:33 PM EDT CBC AND DIFFERENTIAL STAT 05/21/2025 3:33 PM EDT ECG 12-LEAD STAT 05/21/2025 1:47 PM EDT HEMOGLOBIN A1C Routine 11/15/2022 11:10 AM EST Type 2 diabetes mellitus without complication, unspecified whether penitentiary insulin use from Last 3 Months or Most Recently Relevant to Health Maintenance Results * LFTs (hepatic panel) (05/21/2025 3:33 PM EDT) ALKALINE PHOSPHATASE 111 39 - 117 U/L [facility] TOTAL BILIRUBIN 0.4 0.0 - 1.2 mg/dL [facility] DIRECT BILIRUBIN 0.1 0.0 - 0.2 mg/dL [facility] Bilirubin (Indirect) NOT CALCULATED 0 - 1.5 mg/dL [facility] AST 15 0 - 37 U/L [facility] ALT 19 0 - 40 U/L [facility] TOTAL PROTEIN 7.1 6.5 - 8.0 g/dL [facility] ALBUMIN 4.2 3.9 - 4.8 g/dL [facility] GLOBULIN 2.9 1 - 4.8 g/dL [facility] A/G Ratio 1.45 1.00 - 4.80 RATIO [facility] Blood 05/21/2025 3:33 PM EDT 05/21/2025 3:46 PM EDT us Leonel Rahman PA-C LAB BLOOD ORDERABLES Final Re sult [facility] [address] [place] [address] * (ABNORMAL) CBC and differential (05/21/2025 3:33 PM EDT) WBC 7.55 4.00 - 11.00 K/uL [facility] RBC 4.07(L) 4.50 - 5.90 M/uL [facility] HGB 11.7(L) 13.5 - 17.5 g/dL [facility] HCT 36.5(L) 41.0 - 53.0 % [facility] PLT 241 150 - 450 K/uL [facility] MCV 89.7 80.0 - 100.0 fL [facility] MCH 28.7 27.0 - 31.0 pg [facility] MCHC 32.1 32.0 - 36.0 g/dL [facility] RDW 13.2 11.5 - 14.5 % [facility] MPV 10.3 8.4 - 12.0 fL [facility] NRBC 0.00 0.00 /100 WBCs [facility] ABSOLUTE NRBC 0.00 0.00 K/uL [facility] DIFF METHOD Auto [facility] NEUTS 62.7 48.0 - 76.0 % [facility] LYMPHS 23.6 18.0 - 41.0 % [facility] MONOS 11.7(H) 4.0 - 11.0 % [facility] EOS 0.9 0.0 - 5.0 % [facility] BASOS 0.8 0.0 - 1.5 % [facility] Granulocytes, immature (%) 0.3 0.0 - 0.9 % [facility] ABSOLUTE NEUTS 4.74 1.92 - 7.60 K/uL [facility] ABSOLUTE LYMPHS 1.78 0.72 - 4.10 K/uL [facility] ABSOLUTE MONOS 0.88 0.16 - 1.10 K/uL [facility] ABSOLUTE EOS 0.07 0.00 - 0.50 K/uL [facility] ABSOLUTE BASOS 0.06 0.00 - 0.15 K/uL [facility] Granulocytes, immature 0.02 0.00 - 0.09 K/uL [facility] Blood 05/21/2025 3:33 PM EDT 05/21/2025 3:46 PM EDT Leonel Rahman PA-C LAB BLOOD ORDERABLES Final Re sult Performing Organization Address [facility] Co de Phone Number [address] [address] * Troponin (05/21/2025 3:33 PM EDT) Troponin-T, HS Gen5 13 0 - 14 ng/L [facility] Blood 05/21/2025 3:33 PM EDT 05/21/2025 3:46 PM EDT Leonel Rahman PA-C LAB BLOOD ORDERABLES Final Re sult Performing Organization Address [facility]/ZIP Co de Phone Number [address] [address] * NT-proBNP (05/21/2025 3:33 PM EDT) NT-PROBNP 64 0 - 450 pg/mL [facility] Blood 05/21/2025 3:33 PM EDT 05/21/2025 3:46 PM EDT Leonel CLARKC LAB BLOOD ORDERABLES Final Re sult Performing Organization Address City/[facility]/ZIP Co de Phone Number [address] [phone] * Magnesium (05/21/2025 3:33 PM EDT) [facility] MAGNESIUM 2.2 1.6 - 2.6 mg/dL [facility] Blood 05/21/2025 3:33 PM EDT 05/21/2025 3:46 PM EDT Leonel Rahman PA-C LAB BLOOD ORDERABLES Final Re sult Performing Organization Address [facility]/ZIP Co de Phone Number [address] [address] * (ABNORMAL) Basic metabolic panel (05/21/2025 3:33 PM EDT) [facility] SODIUM 140 133 - 146 mmol/L [facility] CHLORIDE 107 96 - 108 mmol/L [facility] POTASSIUM 5.8(H) 3.3 - 5.1 mmol/L [facility] CO2 22 21 - 35 mmol/L [facility] BUN 28(H) 6 - 19 mg/dL [facility] CREATININE 1.40 0.5 - 1.5 mg/dL [facility] GLUCOSE 74 70 - 99 mg/dL [facility] CALCIUM 9.3 8.4 - 10.3 mg/dL [facility] EGFR 53(L) >59 mL/min/1.7 3m2 [facility] Comment:Estimated glomerular filtration rate calculated using the CKD-EPI refit equation. ANION GAP 17 10 - 20 mmol/L [facility] Blood 05/21/2025 3:33 PM EDT 05/21/2025 3:46 PM EDT Leonel Rahman PA-C LAB BLOOD ORDERABLES Final Re sult Performing Organization Address [facility]/ZIP Co de Phone Number [address] [address] * ECG 12-LEAD (05/21/2025 1:47 PM EDT) Ventricular Rate EKG/MIN 63 BPM [facility] Atrial Rate 63 BPM [facility] LA Interval 170 ms [facility] QRS Duration 88 ms [facility] QT Interval 384 ms [facility] QTC Interval 392 ms [facility] P [place] 49 degrees [facility] R Wave [place] 8 degrees [facility] T Wave [place] 51 degrees [facility] 05/21/2025 1:47 PM EDT 05/22/2025 11:49 AM EDT Narrative [facility] - 05/22/2025 11:49 AM EDT Normal sinus rhythm Normal ECG When compared with ECG of 16-Jan-2025 10:56, No significant change was found Confirmed by Wayne Wheeler ([id number]) on 05/22/2025 11:49:09 AM us Arley Russ MD ECG ORDERABLES Final Resu lt Performing Organization Address City/[facility]/ZIP Co de Phone Number [email or web address] * (ABNORMAL) Hemoglobin A1c (11/15/2022 11:10 AM EST) Pathologist [facility] HEMOGLOBIN A1C 8.2(H) 4.3 - 5.8 % [facility] Blood 11/15/2022 11:1 0 AM EST 11/15/2022 11:13 AM EST us Hugh Rodriguez DO LAB BLOOD ORDERABLES Final Resul t Performing Organization Address [facility]/ZIP Co de Phone Number [address] [address] from Last 3 Months or Most Recently Relevant to Health Maintenance Insurance MEDICARE PART A & B [facility] MEDICARE SUPPLEMENT MEDICARE PART A & B [facility] MEDICARE SUPPLEMENT MEDICARE PART A & B MEDICARE PART A & B MEDICARE PART A & B [employer] MED[employer] SUPPLEMENT MEDICARE PART A & B MEDICARE PART A & B [employer] MED[employer]ARE SUPPLEMENT MEDICARE PART A & B [employer] MED[employer]ARE SUPPLEMENT MEDICARE PART A & B [employer] MEDICARE SUPPLEMENT Care Teams Photographic Intelligence Officer Relationship Specialty Start Date End Date Hugh Rodriguez DO [address] [place] [id number] [email or web address] PCP - General Internal Medicine 01/01/25 Additional Source Comments The information contained in this document represents components of the legal health record. It is not the complete legal health record.[facility]
[2025-06-18 17:49] LABS: Hemoglobin A1C 211.6264 umol/L; Total Hemoglobin (HGBA1C) 2849.7587 umol/L
[2025-06-18 18:10] LABS: Alanine Aminotransferase 23 U/L (0-40); Albumin Level 4.2 g/dL (3.5-5.0); Alkaline Phosphatase 105 U/L (39-117); Anion Gap 14 (12-20); Aspartate Amino Transferase 26 U/L (5-37); Blood Urea Nitrogen 18 mg/dL (9-16); Calcium 9.2 mg/dL (8.4-10.2); Carbon Dioxide 22 mmol/L (22-29); Chloride 105 mmol/L (96-108); Estimated Glomerular Filt Rate 58; Potassium 5.0 mmol/L (3.3-5.1); Sodium 136 mmol/L (135-145); Total Protein 6.8 g/dL (6.5-8.0)
== END 2025-06-18 11:36 | disposition home or self-care (01) ==
LOC: HO.MANLDS 11:35
PROVIDERS: Visit Provider Internal Medicine
DX: E11.9 Type 2 diabetes mellitus without complications (principal)
CPT/HCPCS: 36415; 80053; 83036